=== PATIENT | female | born 1990 | race Caucasian/White ===

== ENCOUNTER 2018-10-06 17:35 | Emergency (ER) | payer MEDICAID, BC ==
--- NOTE | 2018-10-06 17:46 | EDM.PDOC ---
ED HPI GENERAL MEDICAL PROBLEM - General Chief Complaint: Gastrointestinal Problem Stated Complaint: PT HAS BLEEDING Time Seen by Provider: 10/06/18 17:43 Source of Information: Reports: Patient History Limitations: Reports: No Limitations - History of Present Illness INITIAL COMMENTS - FREE TEXT/NARRATIVE: HISTORY AND PHYSICAL: History of present illness: Patient is a 27-year-old female who presents to the emergency room with complaints of generalized abdominal pain and rectal bleeding. She states she has had several days of generalized abdominal discomfort. Today while using the bathroom she had noticed blood coming from the rectum. She states she has had no difficulty having bowel movements, declines straining. No previous history of hemorrhoids. States she has had to wear a panty liner as there is still some residual bleeding. She states she has had bouts of rectal bleeding in the past and was scheduled to have a colonoscopy but states this was canceled for some reason and never followed through with scheduling. Patient denies any fever, chills, headache, change in vision, syncope or near syncope. Denies any chest pain, back pain, shortness of breath or cough. Denies any nausea, vomiting, diarrhea, constipation or dysuria. Patient has been eating and drinking appropriately. Denies any chance of . Review of systems: As per history of present illness and below otherwise all systems reviewed and negative. Past medical history: As per history of present illness and as reviewed below otherwise noncontributory. Surgical history: As per history of present illness and as reviewed below otherwise noncontributory. Social history: See social history for further information Family history: As per history of present illness and as reviewed below otherwise noncontributory. Physical exam: General: Well-developed and well-nourished 27-year-old female. Alert and oriented. Nontoxic appearing and in no acute distress. HEENT: Atraumatic, normocephalic, pupils equal and reactive bilaterally, negative for conjunctival pallor or scleral icterus, mucous membranes moist, TMs normal bilaterally, throat clear, neck supple, nontender, trachea midline. No drooling or trismus noted. No meningeal signs. No hot potato voice noted. Lungs: Clear to auscultation, breath sounds equal bilaterally, chest nontender. Heart: S1S2, regular rate and rhythm without overt murmur Abdomen: Soft, nondistended, nontender. Negative for masses or hepatosplenomegaly. Negative for costovertebral tenderness. Pelvis: Stable nontender. Genitourinary: Deferred. Rectal: This was done with consent and a general accounting clerk at the bedside. External hemorrhoid noted at the 6 o'clock position. Good rectal tone. Hemoccult is positive. No althea blood noted in stool. Skin: Intact, warm, dry. No lesions or rashes noted. Extremities: Atraumatic, moves all extremities per self without difficulty or deficits, negative for cords or calf pain. Neurovascular unremarkable. Neuro: Awake, alert, oriented. Cranial nerves II through XII unremarkable. Cerebellum unremarkable. Motor and sensory unremarkable throughout. Exam nonfocal. Notes: Lab work is unremarkable. CT shows multiple low density lesions throughout the liver, follow-up is requested. She does have a right ovarian cyst. IUD in the endometrial canal. No other significant findings. I did discuss with patient the CT results and encouraged her to follow up with the general surgeon or her primary care for further evaluation of this incidental finding. Ambulatory her external hemorrhoid with hydrocortisone suppository. Encouraged her to follow up with the general surgeon for possible colonoscopy for the hemorrhoids. Supportive care measures were reviewed and discussed. Voices understanding and is agreeable to plan of care. Denies any further questions or concerns at this time. Diagnostics: CBC, CMP, TSH, CT abdomen/pelvis Therapeutics: None Prescription: Hydrocortisone suppository Impression: External hemorrhoid Abdominal pain, generalized Plan: 1. May want to add Colace into your supplement regiment (soften stools). Use the steroid suppository twice daily x 10 days. 2. Labs and imagining today were normal. 3. Follow up with your primary care provider and the General surgeon as we discussed. CT showed a few liver lesions which I would like to you follow up with your primary care provider on. 4. Return to the ED as needed and as discussed. Definitive disposition and diagnosis as appropriate pending reevaluation and review of above. bilteral lower abdomen Pain Score (Numeric/FACES): 5 - Related Data Allergies Allergy/AdvReac Type Severity Reaction Status Date / Time aspirin Allergy Nausea and Verified 10/06/18 17:42 Vomiting Home Meds: Home Meds FLUoxetine HCl [Fluoxetine HCl] 20 mg PO DAILY 03/07/18 [History] Lurasidone HCl [Latuda] 40 mg PO DAILY 07/11/19 [History] Past Medical History HEENT History: Reports: None Cardiovascular History: Reports: None Respiratory History: Reports: None Gastrointestinal History: Reports: None Genitourinary History: Reports: None METER MAKER History: Reports: , Other (See Below) Other METER MAKER History: Uterine biopsy Musculoskeletal History: Reports: None Neurological History: Reports: None Psychiatric History: Reports: None Endocrine/Metabolic History: Reports: Other (See Below) Other Endocrine/Metabolic History: Biopsy on lymph nodes Hematologic History: Reports: None Immunologic History: Reports: None Oncologic (Cancer) History: Reports: None Dermatologic History: Reports: None - Infectious Disease History Infectious Disease History: Reports: Chicken Pox - Past Surgical History Head Surgeries/Procedures: Reports: None HEENT Surgical History: Reports: None Cardiovascular Surgical History: Reports: None Respiratory Surgical History: Reports: None GI Surgical History: Reports: None Female Surgical History: Reports: None Endocrine Surgical History: Reports: None Neurological Surgical History: Reports: None Musculoskeletal Surgical History: Reports: None Oncologic Surgical History: Reports: None Dermatological Surgical History: Reports: None Social & Family History - Family History Family Medical History: Noncontributory - Caffeine Use Caffeine Use: Reports: Coffee, Energy Drinks ED ROS GENERAL - Review of Systems Review Of Systems: ROS reveals no pertinent complaints other than HPI. ED EXAM, GI/ABD - Physical Exam Exam: See Below (See dictation) Course - Vital Signs Last Recorded V/S: Last Vital Signs Temp 97.3 F 10/06/18 19:23 Pulse 88 10/06/18 19:23 Resp 18 10/06/18 19:23 BP 117/63 10/06/18 19:23 Pulse Ox 99 10/06/18 19:23 - Orders/Labs/Meds Labs: Laboratory Tests 10/06/18 10/06/18 10/06/18 Range/Units 18:05 18:05 19:25 WBC 10.50 (4.0-11.0) K/uL RBC 4.66 (4.30-5.90) M/uL Hgb 12.3 (12.0-16.0) g/dL Hct 39.2 (36.0-46.0) % MCV 84.1 (80.0-98.0) fL MCH 26.4 L (27.0-32.0) pg MCHC 31.4 (31.0-37.0) g/dL RDW Std Deviation 41.6 (28.0-62.0) fl RDW Coeff of Krista 14 (11.0-15.0) % Plt Count 354 (150-400) K/uL MPV 9.60 (7.40-12.00) fL Neut % (Auto) 68.1 (48.0-80.0) % Lymph % (Auto) 19.8 (16.0-40.0) % Nuckolls % (Auto) 9.9 (0.0-15.0) % Eos % (Auto) 1.8 (0.0-7.0) % Baso % (Auto) 0.4 (0.0-1.5) % Neut # (Auto) 7.2 H (1.4-5.7) K/uL Lymph # (Auto) 2.1 (0.6-2.4) K/uL Nuckolls # (Auto) 1.0 H (0.0-0.8) K/uL Eos # (Auto) 0.2 (0.0-0.7) K/uL Baso # (Auto) 0.0 (0.0-0.1) K/uL Nucleated RBC % 0.0 /100WBC Nucleated RBCs # 0 K/uL Sodium 137 (136-145) mmol/L Potassium 4.5 (3.5-5.1) mmol/L Chloride 104 (98-107) mmol/L Carbon Dioxide 23.5 (21.0-32.0) mmol/L BUN 17 (7.0-18.0) mg/dL Creatinine 0.9 (0.6-1.0) mg/dL Est Cr Clr Drug Dosing 81.80 mL/min Estimated GFR (MDRD) > 60.0 ml/min Glucose 89 (74-106) mg/dL Calcium 8.5 (8.5-10.1) mg/dL Total Bilirubin 0.2 (0.2-1.0) mg/dL AST 25 (15-37) IU/L ALT 25 (14-63) IU/L Alkaline Phosphatase 117 H (46-116) U/L Total Protein 7.9 (6.4-8.2) g/dL Albumin 3.3 L (3.4-5.0) g/dL Globulin 4.6 H (2.6-4.0) g/dL Albumin/Globulin Ratio 0.7 L (0.9-1.6) TSH 3rd Generation 2.75 (0.36-3.74) uIU/mL Urine Color YELLOW Urine Appearance SLT CLOUDY Urine pH 5.0 (5.0-8.0) Ur Specific [place] 1.010 (1.001-1.035) Urine Protein NEGATIVE (NEGATIVE) mg/dL Urine Glucose (UA) NEGATIVE (NEGATIVE) mg/dL Urine Ketones NEGATIVE (NEGATIVE) mg/dL Urine Occult Blood LARGE H (NEGATIVE) Urine Nitrite NEGATIVE (NEGATIVE) Urine Bilirubin NEGATIVE (NEGATIVE) Urine Urobilinogen 0.2 (<2.0) EU/dL Ur Leukocyte Esterase NEGATIVE (NEGATIVE) Urine RBC 3-5 (0-2/HPF) Urine WBC 2-4 (0-5/HPF) Ur Epithelial Cells FEW (NONE-FEW) Urine Bacteria RARE (NEGATIVE) Meds: Medications Discontinued Medications Generic Name Dose Route Start Last Admin Trade Name Freq PRN Reason Stop Dose Admin Iopamidol 100 ml 10/06/18 18:35 10/06/18 18:36 Isovue Multipack-370 (76%) IVPUSH 10/06/18 18:36 100 ml ONETIME ONE Administration Departure - Departure Time of Disposition: 19:42 Disposition: Home, Self-Care 01 Clinical Impression: Abdominal pain Qualifiers: Abdominal location: generalized Qualified Code(s): R10.84 - Generalized abdominal pain Hemorrhoid Qualifiers: Hemorrhoid type: first degree Qualified Code(s): K64.0 - First degree hemorrhoids - Discharge Information Referrals: PCP,None [Primary Care Provider] - Forms: ED Department Discharge Additional Instructions: The following information is given to patients seen in the emergency department who are being discharged to home. This information is to outline your options for follow-up care. We provide all patients seen in our emergency department with a follow-up referral. The need for follow-up, as well as the timing and circumstances, are variable depending upon the specifics of your emergency department visit. If you don't have a primary care physician on staff, we will provide you with a referral. We always advise you to contact your personal physician following an emergency department visit to inform them of the circumstance of the visit and for follow-up with them and/or the need for any referrals to a consulting specialist. The emergency department will also refer you to a specialist when appropriate. This referral assures that you have the opportunity for follow-up care with a specialist. All of these measure are taken in an effort to provide you with optimal care, which includes your follow-up. Under all circumstances we always encourage you to contact your private physician who remains a resource for coordinating your care. When calling for follow-up care, please make the office aware that this follow-up is from your recent emergency room visit. If for any reason you are refused follow-up, please contact the [facility] Emergency Department at and asked to speak to the emergency department charge nurse. [facility] [address] [place] [id number] [address] [facility] Specialty Care - General Surgery Professional Building [address] [place] [address], [address] [place] [address] 1. May want to add Colace into your supplement regiment (soften stools). Use the steroid suppository twice daily x 10 days. 2. Labs and imagining today were normal. 3. Follow up with your primary care provider and the General surgeon as we discussed. CT showed a few liver lesions which I would like to you follow up with your primary care provider on. 4. Return to the ED as needed and as discussed.
[2018-10-06] MEDS ORDERED: Iopamidol 755 MG/ML 500 ML Multipack Bottle IVPUSH ONE (18:35)
[2018-10-06 18:52] LABS: CHLORIDE,CL 104 mmol/L (98-107); SODIUM,NA 137 mmol/L (136-145)
--- NOTE | 2018-10-06 19:32 | CT ---
INDICATION: Bloody stool. TECHNIQUE: Multiple axial images were obtained from the diaphragm to the symphysis pubis after administration of 100 mL of Isovue-370 intravenously. Sagittal and coronal re-formatted images were obtained. COMPARISON: None. FINDINGS: The visualized portion of the lung bases are clear. There are multiple low-dense lesions throughout the liver largest in the dome of the liver measuring 1.9 cm on image #21 of series 201. The spleen, pancreas were gallbladder and adrenal glands are unremarkable. There is no mass or hydronephrosis seen in the kidneys. There is no evidence of a bowel obstruction. There is an IUD in the uterus. There is a 5.0 x 3.7 cm right ovarian cyst. The abdominal aorta is normal in caliber. There is a retroaortic left renal vein. There are enlarged lymph nodes in the ruthann hepatis region. On image #46 of series 201 there is a 3.5 x 2.4 cm enlarged lymph node in the ruthann hepatis region. There are prominent lymph nodes in the gastrohepatic and retroperitoneal space. There is no free fluid identified in the abdomen or pelvis. IMPRESSION: 1. Multiple low dense lesions scattered throughout both the right and left lobe liver largest in the dome of liver measuring 1.9 cm. These would be consistent with metastases. 2. Enlarged lymph nodes in the gastrohepatic region as well as prominent lymph nodes in the gastrohepatic and retroperitoneal spaces. 3. 5.0 x 3.7 cm right ovarian cyst. 4. IUD in the endometrial canal. Dictated by Regino Abdullahi MD @ 10/06/2018 7:30:34 PM Please note that all CT scans at this facility use dose modulation, iterative reconstruction, and/or weight-based dosing when appropriate to reduce radiation dose to as low as reasonably achievable. Dictated by: Regino Abdullahi MD @ 10/06/2018 19:31:27 (Electronically Signed)
== END 2018-10-06 19:59 | disposition home or self-care (01) ==
LOC: MW.ED 17:35
DX: K64.0 First degree hemorrhoids (principal); R10.84 Generalized abdominal pain; Z88.6 Allergy status to analgesic agent; Z79.899 Other long term (current) drug therapy
CPT/HCPCS: 74177; 80053; 81001; 84443; 85025; 99284; Q9967

== ENCOUNTER 2018-11-21 14:35 | Emergency (ER) | payer BC, MEDICAID ==
--- NOTE | 2018-11-21 14:54 | EDM.PDOC ---
ED HPI GENERAL MEDICAL PROBLEM - General Chief Complaint: Chest Pain Stated Complaint: CHEST PAIN Time Seen by Provider: 11/21/18 14:54 Source of Information: Reports: Patient History Limitations: Reports: No Limitations - History of Present Illness INITIAL COMMENTS - FREE TEXT/NARRATIVE: HISTORY AND PHYSICAL: History of present illness: Patient is a 28-year-old female presents to the ED with complaint of right- sided chest pain 1 week. She states the pain is constant and has gotten worse today which prompted her to come to the ED. She has some associated shortness of breath and palpitations but denies nausea, vomiting, diaphoresis, abdominal pain, cough, fevers, chills. History of bipolar disorder and depression but otherwise denies significant past medical history. She is a former smoker, denies illicit drug use. Patient states that 2 years ago she had a similar chest pain and was found to have a nodule in the mediastinum that was biopsied and found to be a lymph node. Review of systems: As per history of present illness and below otherwise all systems reviewed and negative. Past medical history: As per history of present illness and as reviewed below otherwise noncontributory. Surgical history: As per history of present illness and as reviewed below otherwise noncontributory. Social history: No reported history of drug or alcohol abuse. Family history: As per history of present illness and as reviewed below otherwise noncontributory. Physical exam: General: Patient sitting comfortably in no acute distress and nontoxic appearing HEENT: Atraumatic, normocephalic, pupils reactive, negative for conjunctival pallor or scleral icterus, mucous membranes moist, throat clear, neck supple, nontender, trachea midline. No meningeal signs. Lungs: Clear to auscultation, breath sounds equal bilaterally, pain to palpation of the right anterior chest wall Heart: S1S2, regular, negative for clicks, rubs, or overt murmur. Abdomen: Soft, nondistended, nontender. Negative for masses or hepatosplenomegaly. Negative for costovertebral tenderness. No rigidity, rebound , guarding. Pelvis: Stable nontender. Genitourinary: Deferred. Rectal: Deferred. Extremities: Atraumatic, negative for cords or calf pain. Neurovascular unremarkable. Neuro: Awake, alert, oriented. Cranial nerves II through XII unremarkable. Cerebellum unremarkable. Motor and sensory unremarkable throughout. Exam nonfocal. Notes: Diagnostics: Chest x-ray, EKG Therapeutics: none Prescriptions: Diclofenac Impression: Costochondritis Plan: Take Diclofenac as discussed Follow-up with primary care provider Return to ED as needed as discussed Definitive disposition and diagnosis as appropriate pending reevaluation and review of above. chest Pain Score (Numeric/FACES): 7 - Related Data Allergies Allergy/AdvReac Type Severity Reaction Status Date / Time aspirin Allergy Nausea and Verified 11/21/18 14:46 Vomiting naproxen Allergy Nausea and Verified 11/21/18 14:46 Vomiting Home Meds: Home Meds Lurasidone HCl [Latuda] 40 mg PO DAILY 10/06/18 [History] Diclofenac Sodium [Voltaren] 75 mg PO BIDMEALS #30 tab.cr 11/21/18 [Rx] Sertraline HCl [Zoloft] 1 tab PO DAILY 11/21/18 [History] Past Medical History HEENT History: Reports: None Cardiovascular History: Reports: None Respiratory History: Reports: Asthma Gastrointestinal History: Reports: None Genitourinary History: Reports: None 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 SALES REPRESENTATIVE History: Reports: , Other (See Below) Other HEALTHCARE SALES REPRESENTATIVE History: Uterine biopsy Musculoskeletal History: Reports: None Neurological History: Reports: None Psychiatric History: Reports: None Endocrine/Metabolic History: Reports: Other (See Below) Other Endocrine/Metabolic History: Biopsy on lymph nodes Hematologic History: Reports: None Immunologic History: Reports: None Oncologic (Cancer) History: Reports: None Dermatologic History: Reports: None - Infectious Disease History Infectious Disease History: Reports: C-Difficile - Past Surgical History Head Surgeries/Procedures: Reports: None HEENT Surgical History: Reports: None Cardiovascular Surgical History: Reports: None Respiratory Surgical History: Reports: None GI Surgical History: Reports: None Female Surgical History: Reports: None Endocrine Surgical History: Reports: None Neurological Surgical History: Reports: None Musculoskeletal Surgical History: Reports: None Oncologic Surgical History: Reports: None Dermatological Surgical History: Reports: None Social & Family History - Family History Family Medical History: Noncontributory - Tobacco Use Smoking Status *Q: Former Smoker Used Tobacco, but Quit: Yes Month/Year Tobacco Last Used: 2 years - Caffeine Use Caffeine Use: Reports: Coffee - Recreational Drug Use Recreational Drug Use: No ED ROS GENERAL - Review of Systems Review Of Systems: ROS reveals no pertinent complaints other than HPI. ED EXAM, GENERAL - Physical Exam Exam: See Below (See dictation) Course - Vital Signs Last Recorded V/S: Last Vital Signs Temp 97.0 F 11/21/18 15:57 Pulse 69 11/21/18 15:57 Resp 16 11/21/18 15:57 BP 123/75 11/21/18 15:57 Pulse Ox 99 11/21/18 15:57 Departure - Departure Time of Disposition: 16:31 Disposition: Home, Self-Care 01 Condition: Good Clinical Impression: Costochondritis Prescriptions: Diclofenac Sodium [Voltaren] 75 mg PO BIDMEALS #30 tab.cr Referrals: PCP,Unknown [Primary Care Provider] - Forms: ED Department Discharge Additional Instructions: The following information is given to patients seen in the emergency department who are being discharged to home. This information is to outline your options for follow-up care. We provide all patients seen in our emergency department with a follow-up referral. The need for follow-up, as well as the timing and circumstances, are variable depending upon the specifics of your emergency department visit. If you don't have a primary care physician on staff, we will provide you with a referral. We always advise you to contact your personal physician following an emergency department visit to inform them of the circumstance of the visit and for follow-up with them and/or the need for any referrals to a consulting specialist. The emergency department will also refer you to a specialist when appropriate. This referral assures that you have the opportunity for follow-up care with a specialist. All of these measure are taken in an effort to provide you with optimal care, which includes your follow-up. Under all circumstances we always encourage you to contact your private physician who remains a resource for coordinating your care. When calling for follow-up care, please make the office aware that this follow-up is from your recent emergency room visit. If for any reason you are refused follow-up, please contact the [facility] Emergency Department at and asked to speak to the emergency department charge nurse. [facility] [address] [place] [address] [id number] [address] Take Diclofenac as discussed Follow-up with primary care provider Return to ED as needed as discussed
--- NOTE | 2018-11-21 16:20 | CR ---
INDICATION: Chest pain and dyspnea for 1 week. History of asthma TECHNIQUE: Chest radiograph 2 views COMPARISON: None FINDINGS: Mediastinum: There is a convex density in the left paratracheal region overlying the aortic arch measuring 5.3 cm. The heart silhouette is normal in size and morphology. Lung: Both lungs are unremarkable in appearance. No sign of pleural effusion seen. No pneumothorax is identified. IMPRESSION: 1. There is a convex density in the left paratracheal region overlying the aortic arch measuring 5.3 cm. Evaluation with chest CT is recommended to exclude mediastinal mass. A copy of this report was faxed to Dr. Nichols at approximately 4:19 PM. Dictated by Torin Aponte MD @ 11/21/2018 4:19:06 PM Dictated by: Torin Aponte MD @ 11/21/2018 16:19:20 (Electronically Signed)
== END 2018-11-21 16:50 | disposition home or self-care (01) ==
LOC: MW.ED 14:35
DX: M94.0 Chondrocostal junction syndrome [Tietze] (principal); Z87.891 Personal history of nicotine dependence; Z88.8 Allergy status to other drugs, medicaments and biological substances; Z79.899 Other long term (current) drug therapy
CPT/HCPCS: 71046; 71046-26; 93005; 99283; 99284-25

== ENCOUNTER 2019-02-06 10:28 | Emergency (ER) | payer BC, MEDICAID ==
--- NOTE | 2019-02-06 10:32 | EDM.PDOC ---
ED HPI GENERAL MEDICAL PROBLEM - General Chief Complaint: Flank Pain Stated Complaint: LOW BACK PAIN Time Seen by Provider: 02/06/19 10:29 Source of Information: Reports: Patient History Limitations: Reports: No Limitations - History of Present Illness INITIAL COMMENTS - FREE TEXT/NARRATIVE: HISTORY AND PHYSICAL: History of present illness: Patient is a 28-year-old female presents to the ED with complaint of right flank pain. She states it started yesterday morning and is progressively getting worse. She states pain is in her right mid back and wraps around to the front of her abdomen. Pain is constant. She states she was treated for a UTI 2 weeks ago and finished her antibiotics. She denies dysuria, hematuria, vomiting , fevers, chills, chest pain, SOB. She states she has been nauseous. She is not taking anything for her symptoms. Review of systems: As per history of present illness and below otherwise all systems reviewed and negative. Past medical history: As per history of present illness and as reviewed below otherwise noncontributory. Surgical history: As per history of present illness and as reviewed below otherwise noncontributory. Social history: No reported history of drug or alcohol abuse. Family history: As per history of present illness and as reviewed below otherwise noncontributory. Physical exam: General: Patient sitting comfortably in no acute distress and nontoxic appearing HEENT: Atraumatic, normocephalic, pupils reactive, negative for conjunctival pallor or scleral icterus, mucous membranes moist, throat clear, neck supple, nontender, trachea midline. No meningeal signs. Lungs: Clear to auscultation, breath sounds equal bilaterally, chest nontender. Heart: S1S2, regular, negative for clicks, rubs, or overt murmur. Abdomen: Soft, nondistended, nontender. Negative for masses or hepatosplenomegaly. Right costovertebral tenderness. No rigidity, rebound, guarding. Pelvis: Stable nontender. Genitourinary: Deferred. Rectal: Deferred. Extremities: Atraumatic, negative for cords or calf pain. Neurovascular unremarkable. Neuro: Awake, alert, oriented. Cranial nerves II through XII unremarkable. Cerebellum unremarkable. Motor and sensory unremarkable throughout. Exam nonfocal. Notes: Diagnostics: UA, urine hcg Therapeutics: [] Prescriptions: Cipro Impression: UTI Plan: Drink plenty of fluids and take antibiotic as directed. Follow up with primary care provider Return to ED as needed as discussed Definitive disposition and diagnosis as appropriate pending reevaluation and review of above. Right Flank Pain Score (Numeric/FACES): 7 - Related Data Allergies Allergy/AdvReac Type Severity Reaction Status Date / Time aspirin Allergy Nausea and Verified 02/06/19 10:39 Vomiting naproxen Allergy Nausea and Verified 02/06/19 10:39 Vomiting Home Meds: Home Meds Lurasidone HCl [Latuda] 40 mg PO DAILY 10/06/18 [History] Diclofenac Sodium [Voltaren] 75 mg PO BIDMEALS #30 tab.cr 11/21/18 [Rx] Sertraline HCl [Zoloft] 1 tab PO DAILY 11/21/18 [History] Past Medical History HEENT History: Reports: None Cardiovascular History: Reports: None Respiratory History: Reports: Asthma Gastrointestinal History: Reports: None Genitourinary History: Reports: None SKIN FITTER History: Reports: , Other (See Below) Other SKIN FITTER History: Uterine biopsy Musculoskeletal History: Reports: None Neurological History: Reports: None Psychiatric History: Reports: None Endocrine/Metabolic History: Reports: Other (See Below) Other Endocrine/Metabolic History: Biopsy on lymph nodes Hematologic History: Reports: None Immunologic History: Reports: None Oncologic (Cancer) History: Reports: None Dermatologic History: Reports: None - Infectious Disease History Infectious Disease History: Reports: C-Difficile - Past Surgical History Head Surgeries/Procedures: Reports: None HEENT Surgical History: Reports: None Cardiovascular Surgical History: Reports: None Respiratory Surgical History: Reports: None GI Surgical History: Reports: None Female Surgical History: Reports: None Endocrine Surgical History: Reports: None Neurological Surgical History: Reports: None Musculoskeletal Surgical History: Reports: None Oncologic Surgical History: Reports: None Dermatological Surgical History: Reports: None Social & Family History - Family History Family Medical History: Noncontributory - Caffeine Use Caffeine Use: Reports: Coffee ED ROS GENERAL - Review of Systems Review Of Systems: ROS reveals no pertinent complaints other than HPI. ED EXAM,LOWER BACK PAIN/INJURY - Physical Exam Exam: See Below (see dictation) Course - Vital Signs Last Recorded V/S: Last Vital Signs Temp 96.5 F 02/06/19 10:39 Pulse 84 02/06/19 10:39 Resp 16 02/06/19 10:39 BP 125/65 11/11/19 10:39 Pulse Ox 97 02/06/19 10:39 - Orders/Labs/Meds Orders: Active Orders 24 hr Category Date Time Status CULTURE URINE [RM] Stat Lab 02/06/19 10:33 Received Labs: Laboratory Tests 02/06/19 02/06/19 Range/Units 10:33 10:33 Urine Color YELLOW Urine Appearance CLEAR Urine pH 6.5 (5.0-8.0) Ur Specific [place] 1.010 (1.001-1.035) Urine Protein NEGATIVE (NEGATIVE) mg/dL Urine Glucose (UA) NEGATIVE (NEGATIVE) mg/dL Urine Ketones NEGATIVE (NEGATIVE) mg/dL Urine Occult Blood SMALL H (NEGATIVE) Urine Nitrite NEGATIVE (NEGATIVE) Urine Bilirubin NEGATIVE (NEGATIVE) Urine Urobilinogen 0.2 (<2.0) EU/dL Ur Leukocyte Esterase SMALL H (NEGATIVE) Urine RBC 2-5 (0-2/HPF) Urine WBC 5-10 (0-5/HPF) Ur Epithelial Cells MANY (NONE-FEW) Urine Bacteria 2+ H (NEGATIVE) Urine HCG, Qual NEGATIVE (NEGATIVE) Departure - Departure Time of Disposition: 11:13 Disposition: Home, Self-Care 01 Condition: Good Clinical Impression: UTI (urinary tract infection) - Discharge Information Referrals: PCP,Unknown [Primary Care Provider] - Forms: ED Department Discharge Additional Instructions: The following information is given to patients seen in the emergency department who are being discharged to home. This information is to outline your options for follow-up care. We provide all patients seen in our emergency department with a follow-up referral. The need for follow-up, as well as the timing and circumstances, are variable depending upon the specifics of your emergency department visit. If you don't have a primary care physician on staff, we will provide you with a referral. We always advise you to contact your personal physician following an emergency department visit to inform them of the circumstance of the visit and for follow-up with them and/or the need for any referrals to a consulting specialist. The emergency department will also refer you to a specialist when appropriate. This referral assures that you have the opportunity for follow-up care with a specialist. All of these measure are taken in an effort to provide you with optimal care, which includes your follow-up. Under all circumstances we always encourage you to contact your private physician who remains a resource for coordinating your care. When calling for follow-up care, please make the office aware that this follow-up is from your recent emergency room visit. If for any reason you are refused follow-up, please contact the [facility] Emergency Department at and asked to speak to the emergency department charge nurse. [facility] [address] [place] [address] [facility] [address] [place] [id number] Drink plenty of fluids and take antibiotic as directed. Follow up with primary care provider Return to ED as needed as discussed - My Orders Last 24 Hours: My Active Orders 02/06/19 10:33 CULTURE URINE [RM] Stat - Assessment/Plan Last 24 Hours: My Active Orders 02/06/19 10:33 CULTURE URINE [RM] Stat
== END 2019-02-06 11:33 | disposition home or self-care (01) ==
LOC: MW.ED 10:28
DX: N39.0 Urinary tract infection, site not specified (principal); Z88.8 Allergy status to other drugs, medicaments and biological substances; Z79.899 Other long term (current) drug therapy
CPT/HCPCS: 81001; 81025; 87086; 99284

== ENCOUNTER 2019-02-27 10:25 | Emergency (ER) | payer BC, MEDICAID ==
[2019-02-27] MEDS ORDERED: Sodium Chloride 0.9% 1,000 ML IV ONE ×2 (10:42→12:45)
[2019-02-27] MEDS ORDERED: Ondansetron 4 MG/2 ML SDV IVPUSH ONE (10:42)
[2019-02-27] MEDS ORDERED: Ketorolac 30 MG/ML SDV IVPUSH ONE (10:42)
[2019-02-27] MEDS ORDERED: Dicyclomine 10 MG Cap PO ONE (10:43)
--- NOTE | 2019-02-27 10:47 | EDM.PDOC ---
ED HPI GENERAL MEDICAL PROBLEM - General Chief Complaint: Abdominal Pain Stated Complaint: VOMITINg Time Seen by Provider: 02/27/19 10:26 Source of Information: Reports: Patient History Limitations: Reports: No Limitations - History of Present Illness INITIAL COMMENTS - FREE TEXT/NARRATIVE: HISTORY AND PHYSICAL: History of present illness: Patient is a 28-year-old female presents to the ED today with concern of vomiting and diarrhea since yesterday. Patient states every 15-20 minutes she is having watery diarrhea and vomits within the same timeframe. Patient states prior to the diarrhea she does have some generalized abdominal cramping which is relieved with the bowel movement. Patient states she's been having a hard time keeping fluids down due to vomiting. Patient denies any other symptoms or concerns. Patient denies fever, chills, chest pain, shortness of breath, or cough. Denies headache, neck stiff ness, change in vision, syncope, or near syncope. Denies dysuria. Has not noted any blood in urine or stool. Review of systems: As per history of present illness and below otherwise all systems reviewed and negative. Past medical history: As per history of present illness and as reviewed below otherwise noncontributory. Surgical history: As per history of present illness and as reviewed below otherwise noncontributory. Social history: See social history for further information Family history: As per history of present illness and as reviewed below otherwise noncontributory. Physical exam: General: Patient is alert, oriented, and in no acute distress. Patient sitting comfortably on exam table. HEENT: Atraumatic, normocephalic, pupils equal and reactive bilaterally, negative for conjunctival pallor or scleral icterus, mucous membranes moist, TMs normal bilaterally, throat clear, neck supple, nontender, trachea midline. No drooling or trismus noted. No meningeal signs. No hot potato voice noted. Lungs: Clear to auscultation, breath sounds equal bilaterally, chest nontender. Heart: S1S2, regular rate and rhythm without overt murmur Abdomen: Soft, nondistended, nontender. Negative for masses or hepatosplenomegaly. Negative for costovertebral tenderness. Pelvis: Stable nontender. Genitourinary: Deferred. Rectal: Deferred. Skin: Intact, warm, dry. No lesions or rashes noted. Extremities: Atraumatic, negative for cords or calf pain. Neurovascular unremarkable. Neuro: Awake, alert, oriented. Cranial nerves II through XII unremarkable. Cerebellum unremarkable. Motor and sensory unremarkable throughout. Exam nonfocal. Notes: Patient is on her menstrual cycle at this time. Patient is able to tolerate by mouth intake in the ED today. Patient was unable to leave a stool sample here in the ED today. Stool collection supplies have been provided to her to collect outpatient and return for lab. Voices understanding and is agreeable to plan of care. Denies any further questions or concerns at this time. Diagnostics: CBC, CMP, UA, lipase, stool culture, ova and parasite, C. difficile, [facility] [place] [facility]: NS, Bentyl, Zofran, Toradol Prescription: Zofran, Bentyl Impression: H/O vomiting H/O diarrhea Plan: 1. Take medication as prescribed. You can alternate ibuprofen and Tylenol as directed for pain and discomfort. 2. Follow-up with her primary care provider as discussed. Return to the ED as needed and as discussed. Definitive disposition and diagnosis as appropriate pending reevaluation and review of above. abd Pain Score (Numeric/FACES): 7 - Related Data Allergies Allergy/AdvReac Type Severity Reaction Status Date / Time aspirin Allergy Nausea and Verified 02/06/19 10:39 Vomiting naproxen Allergy Nausea and Verified 02/06/19 10:39 Vomiting Home Meds: Home Meds FLUoxetine HCl [Fluoxetine] 30 mg PO 02/27/19 [History] Lurasidone HCl [Latuda] 40 mg PO 02/27/19 [History] Past Medical History HEENT History: Reports: None Cardiovascular History: Reports: None Respiratory History: Reports: Asthma Gastrointestinal History: Reports: None Genitourinary History: Reports: None PEDIATRICIAN/MEDICAL DOCTOR History: Reports: , Other (See Below) Other PEDIATRICIAN/MEDICAL DOCTOR History: Uterine biopsy Musculoskeletal History: Reports: None Neurological History: Reports: None Psychiatric History: Reports: None Endocrine/Metabolic History: Reports: Other (See Below) Other Endocrine/Metabolic History: Biopsy on lymph nodes Hematologic History: Reports: None Immunologic History: Reports: None Oncologic (Cancer) History: Reports: None Dermatologic History: Reports: None - Infectious Disease History Infectious Disease History: Reports: C-Difficile - Past Surgical History Head Surgeries/Procedures: Reports: None HEENT Surgical History: Reports: None Cardiovascular Surgical History: Reports: None Respiratory Surgical History: Reports: None GI Surgical History: Reports: None Female Surgical History: Reports: None Endocrine Surgical History: Reports: None Neurological Surgical History: Reports: None Musculoskeletal Surgical History: Reports: None Oncologic Surgical History: Reports: None Dermatological Surgical History: Reports: None Social & Family History - Family History Family Medical History: Noncontributory - Tobacco Use Smoking Status *Q: Current Every Day Smoker Years of Tobacco use: 1 Packs/Tins Daily: 1 - Caffeine Use Caffeine Use: Reports: Coffee - Recreational Drug Use Recreational Drug Use: No ED ROS GENERAL - Review of Systems Review Of Systems: Comprehensive ROS is negative, except as noted in HPI. ED EXAM, GENERAL - Physical Exam Exam: See Below (see dictation) Course - Vital Signs Last Recorded V/S: Last Vital Signs Temp 97.6 F 02/27/19 12:20 Pulse 106 H 02/27/19 12:20 Resp 13 02/27/19 12:20 BP 127/71 02/27/19 12:20 Pulse Ox 98 02/27/19 12:20 - Orders/Labs/Meds Orders: Active Orders 24 hr Category Date Time Status Communication Order [RC] STAT Care 02/27/19 11:46 Active C DIFFICILE AG/TOXIN W/REFLEX [RM] Stat Lab 02/27/19 10:43 Ordered CULTURE STOOL + CAMPY+SHIGATOX [RM] Stat Lab 02/27/19 10:43 Ordered OVA & PARASITES BY IMMUNOASSAY [MREF] Stat Lab 02/27/19 10:43 Ordered Sodium Chloride 0.9% [Normal Saline] 1,000 ml Med 02/27/19 12:45 Active IV STAT Medication Orders Sodium Chloride (Normal Saline) 1,000 mls @ 999 mls/hr IV STAT ONE Stop: 02/27/19 13:45 Last Admin: 02/27/19 12:49 Dose: 999 mls/hr Labs: Laboratory Tests 02/27/19 02/27/19 02/27/19 Range/Units 10:50 10:50 10:50 WBC 9.53 (4.0-11.0) K/uL RBC 5.38 (4.30-5.90) M/uL Hgb 14.2 (12.0-16.0) g/dL Hct 44.4 (36.0-46.0) % MCV 82.5 (80.0-98.0) fL MCH 26.4 L (27.0-32.0) pg MCHC 32.0 (31.0-37.0) g/dL RDW Std Deviation 45.6 (28.0-62.0) fl RDW Coeff of Krsita 15 (11.0-15.0) % Plt Count 348 (150-400) K/uL MPV 9.60 (7.40-12.00) fL Neut % (Auto) 84.9 H (48.0-80.0) % Lymph % (Auto) 7.6 L (16.0-40.0) % [place] % (Auto) 7.0 (0.0-15.0) % Eos % (Auto) 0.2 (0.0-7.0) % Baso % (Auto) 0.3 (0.0-1.5) % Neut # (Auto) 8.1 H (1.4-5.7) K/uL Lymph # (Auto) 0.7 (0.6-2.4) K/uL [place] # (Auto) 0.7 (0.0-0.8) K/uL Eos # (Auto) 0.0 (0.0-0.7) K/uL Baso # (Auto) 0.0 (0.0-0.1) K/uL Nucleated RBC % 0.0 /100WBC Nucleated RBCs # 0 K/uL Sodium 137 (136-145) mmol/L Potassium 3.9 (3.5-5.1) mmol/L Chloride 101 (98-107) mmol/L Carbon Dioxide 21.3 (21.0-32.0) mmol/L BUN 20 H (7.0-18.0) mg/dL Creatinine 0.9 (0.6-1.0) mg/dL Est Cr Clr Drug Dosing 81.08 mL/min Estimated GFR (MDRD) > 60.0 ml/min Glucose 118 H (74-106) mg/dL Calcium 8.4 L (8.5-10.1) mg/dL Total Bilirubin 0.4 (0.2-1.0) mg/dL AST 18 (15-37) IU/L ALT 18 (14-63) IU/L Alkaline Phosphatase 131 H (46-116) U/L Total Protein 8.5 H (6.4-8.2) g/dL Albumin 3.6 (3.4-5.0) g/dL Globulin 4.9 H (2.6-4.0) g/dL Albumin/Globulin Ratio 0.7 L (0.9-1.6) Lipase 48 L (73-393) U/L HCG, Qual NEGATIVE (NEG) Urine Color Urine Appearance Urine pH (5.0-8.0) Ur Specific [place] (1.001-1.035) Urine Protein (NEGATIVE) mg/dL Urine Glucose (UA) (NEGATIVE) mg/dL Urine Ketones (NEGATIVE) mg/dL Urine Occult Blood (NEGATIVE) Urine Nitrite (NEGATIVE) Urine Bilirubin (NEGATIVE) Urine Urobilinogen (<2.0) EU/dL Ur Leukocyte Esterase (NEGATIVE) Urine RBC (0-2/HPF) Urine WBC (0-5/HPF) Ur Epithelial Cells (NONE-FEW) Urine Bacteria (NEGATIVE) Urine Mucus (NONE-MOD) 02/27/19 Range/Units 13:25 WBC (4.0-11.0) K/uL RBC (4.30-5.90) M/uL Hgb (12.0-16.0) g/dL Hct (36.0-46.0) % MCV (80.0-98.0) fL MCH (27.0-32.0) pg MCHC (31.0-37.0) g/dL RDW Std Deviation (28.0-62.0) fl RDW Coeff of Krista (11.0-15.0) % Plt Count (150-400) K/uL MPV (7.40-12.00) fL Neut % (Auto) (48.0-80.0) % Lymph % (Auto) (16.0-40.0) % [place] % (Auto) (0.0-15.0) % Eos % (Auto) (0.0-7.0) % Baso % (Auto) (0.0-1.5) % Neut # (Auto) (1.4-5.7) K/uL Lymph # (Auto) (0.6-2.4) K/uL [place] # (Auto) (0.0-0.8) K/uL Eos # (Auto) (0.0-0.7) K/uL Baso # (Auto) (0.0-0.1) K/uL Nucleated RBC % /100WBC Nucleated RBCs # K/uL Sodium (136-145) mmol/L Potassium (3.5-5.1) mmol/L Chloride (98-107) mmol/L Carbon Dioxide (21.0-32.0) mmol/L BUN (7.0-18.0) mg/dL Creatinine (0.6-1.0) mg/dL Est Cr Clr Drug Dosing mL/min Estimated GFR (MDRD) ml/min Glucose (74-106) mg/dL Calcium (8.5-10.1) mg/dL Total Bilirubin (0.2-1.0) mg/dL AST (15-37) IU/L ALT (14-63) IU/L Alkaline Phosphatase (46-116) U/L Total Protein (6.4-8.2) g/dL Albumin (3.4-5.0) g/dL Globulin (2.6-4.0) g/dL Albumin/Globulin Ratio (0.9-1.6) Lipase (73-393) U/L HCG, Qual (NEG) Urine Color YELLOW Urine Appearance HAZY Urine pH 6.0 (5.0-8.0) Ur Specific [place] 1.025 (1.001-1.035) Urine Protein TRACE H (NEGATIVE) mg/dL Urine Glucose (UA) NEGATIVE (NEGATIVE) mg/dL Urine Ketones NEGATIVE (NEGATIVE) mg/dL Urine Occult Blood LARGE H (NEGATIVE) Urine Nitrite NEGATIVE (NEGATIVE) Urine Bilirubin NEGATIVE (NEGATIVE) Urine Urobilinogen 0.2 (<2.0) EU/dL Ur Leukocyte Esterase NEGATIVE (NEGATIVE) Urine RBC 10-12 (0-2/HPF) Urine WBC 1-3 (0-5/HPF) Ur Epithelial Cells MANY (NONE-FEW) Urine Bacteria 1+ H (NEGATIVE) Urine Mucus HEAVY (NONE-MOD) Meds: Medications Generic Name Dose Route Start Last Admin Trade Name Freq PRN Reason Stop Dose Admin Sodium Chloride 1,000 mls @ 999 mls/hr 02/27/19 12:45 02/27/19 12:49 Normal Saline IV 02/27/19 13:45 999 mls/hr STAT ONE Administration Discontinued Medications Generic Name Dose Route Start Last Admin Trade Name Freq PRN Reason Stop Dose Admin Dicyclomine HCl 10 mg 02/27/19 10:43 02/27/19 11:01 Bentyl PO 02/27/19 10:44 10 mg ONETIME ONE Administration Sodium Chloride 1,000 mls @ 999 mls/hr 02/27/19 10:42 02/27/19 11:01 Normal Saline IV 02/27/19 11:42 999 mls/hr BOLUS ONE Administration Ketorolac Tromethamine 30 mg 02/27/19 10:42 02/27/19 11:01 Toradol IVPUSH 02/27/19 10:43 30 mg ONETIME ONE Administration Ondansetron HCl 4 mg 02/27/19 10:42 02/27/19 11:01 Zofran IVPUSH 02/27/19 10:43 4 mg ONETIME ONE Administration Departure - Departure Time of Disposition: 13:44 Disposition: Home, Self-Care 01 Clinical Impression: History of vomiting, History of diarrhea - Discharge Information Instructions: Diarrhea, Adult, Nausea and Vomiting, Adult Referrals: PCP,Unknown [Primary Care Provider] - Forms: ED Department Discharge Additional Instructions: The following information is given to patients seen in the emergency department who are being discharged to home. This information is to outline your options for follow-up care. We provide all patients seen in our emergency department with a follow-up referral. The need for follow-up, as well as the timing and circumstances, are variable depending upon the specifics of your emergency department visit. If you don't have a primary care physician on staff, we will provide you with a referral. We always advise you to contact your personal physician following an emergency department visit to inform them of the circumstance of the visit and for follow-up with them and/or the need for any referrals to a consulting specialist. The emergency department will also refer you to a specialist when appropriate. This referral assures that you have the opportunity for follow-up care with a specialist. All of these measure are taken in an effort to provide you with optimal care, which includes your follow-up. Under all circumstances we always encourage you to contact your private physician who remains a resource for coordinating your care. When calling for follow-up care, please make the office aware that this follow-up is from your recent emergency room visit. If for any reason you are refused follow-up, please contact the [facility] Emergency Department at and asked to speak to the emergency department charge nurseLanden Garcia [facility] [address] [place] [address] [facility] [address] [place] [address] 1. Take medication as prescribed. You can alternate ibuprofen and Tylenol as directed for pain and discomfort. 2. Follow-up with her primary care provider as discussed. Return to the ED as needed and as discussed. - My Orders Last 24 Hours: My Active Orders 02/27/19 10:43 C DIFFICILE AG/TOXIN W/REFLEX [RM] Stat CULTURE STOOL + CAMPY+SHIGATOX [RM] Stat OVA & PARASITES BY IMMUNOASSAY [MREF] Stat 02/27/19 11:46 Communication Order [RC] STAT 02/27/19 12:45 Sodium Chloride 0.9% [Normal Saline] 1,000 ml IV STAT - Assessment/Plan Last 24 Hours: My Active Orders 02/27/19 10:43 C DIFFICILE AG/TOXIN W/REFLEX [RM] Stat CULTURE STOOL + CAMPY+SHIGATOX [RM] Stat OVA & PARASITES BY IMMUNOASSAY [MREF] Stat 02/27/19 11:46 Communication Order [RC] STAT 02/27/19 12:45 Sodium Chloride 0.9% [Normal Saline] 1,000 ml IV STAT
[2019-02-27 11:44] LABS: BLOOD UREA NITROGEN,BUN 20 mg/dL (7.0-18.0); CARBON DIOXIDE,CO2 21.3 mmol/L (21.0-32.0); CHLORIDE,CL 101 mmol/L (98-107); GLUCOSE RANDOM 118 mg/dL (74-106); LIPASE 48 U/L (73-393); POTASSIUM,K 3.9 mmol/L (3.5-5.1); SODIUM,NA 137 mmol/L (136-145)
== END 2019-02-27 13:57 | disposition home or self-care (01) ==
LOC: MW.ED 10:25
DX: R11.10 Vomiting, unspecified (principal); R19.7 Diarrhea, unspecified; F17.210 Nicotine dependence, cigarettes, uncomplicated; Z88.8 Allergy status to other drugs, medicaments and biological substances
CPT/HCPCS: 36415; 80053; 81001; 83690; 84703; 85025; 96361; 96374; 96375; 99284; A9270; J1885; J2405; J7030

== ENCOUNTER 2019-10-20 07:36 | Emergency (ER) | payer BC, MEDICAID ==
--- NOTE | 2019-10-20 07:48 | EDM.PDOC ---
<Sybil Styles - Last Filed: 10/20/19 10:27> ED HPI GENERAL MEDICAL PROBLEM - General Chief Complaint: General Stated Complaint: RT SIDE PAIN Time Seen by Provider: 10/20/19 07:47 Source of Information: Reports: Patient History Limitations: Reports: No Limitations - History of Present Illness INITIAL COMMENTS - FREE TEXT/NARRATIVE: 28 yo female presenting today w. right flank/back pain x 4 months; states she believes her previous UTI was not fully treated and had persistent pain; used ibuprofen w. some relief; however this AM pt. felt pain in her right shoulder and was concerned . Endorsed pain could also be from ETOH abuse; drinks 1/4 to 1/2 of Vodka+beer nightly "since COVID started". Otherwise denies other illicit drug abuse. Vapes only. Used Ibuprofen throughout week; 1-2 times (200mg x 2) with mild relief Mentions pain is sharp/intermittent, radiating into right shoulder, worsened w. deep breaths and foods; improved initially w. ibuprofen but mentioned water was making her nauseous this AM. Endorsed some mild N/V ; non-bilious as well; did not improve with water consumption denies Has not taken her Abilify or other meds for her Bipolar disorder x 3 weeks Right Upper Abdomen Pain Score (Numeric/FACES): 8 - Related Data Allergies Allergy/AdvReac Type Severity Reaction Status Date / Time aspirin Allergy Nausea and Verified 10/20/19 07:59 Vomiting naproxen Allergy Nausea and Verified 10/20/19 07:59 Vomiting Home Meds: Home Meds ARIPiprazole [Abilify] 2 mg PO DAILY 10/20/19 [History] Diclofenac Sodium [Voltaren] 50 mg PO TID 5 Days #15 tab.ec 10/20/19 [Rx] FLUoxetine [PROzac] 10 mg PO DAILY 10/20/19 [History] Ondansetron [Zofran ODT] 4 mg PO Q6H PRN 3 Days #12 tab.dis 10/20/19 [Rx] Sulfamethoxazole/Trimethoprim [Bactrim Ds Tablet] 1 each PO BID 5 Days #10 tablet 10/20/19 [Rx] Past Medical History HEENT History: Reports: None Cardiovascular History: Reports: None Respiratory History: Reports: Asthma Gastrointestinal History: Reports: None Genitourinary History: Reports: None 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: , 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 (See Below) Other CEMETERY LABORER History: Uterine biopsy Musculoskeletal History: Reports: None Neurological History: Reports: None Psychiatric History: Reports: None Endocrine/Metabolic History: Reports: Other (See Below) Other Endocrine/Metabolic History: Biopsy on lymph nodes Hematologic History: Reports: None Immunologic History: Reports: None Oncologic (Cancer) History: Reports: None Dermatologic History: Reports: None - Infectious Disease History Infectious Disease History: Reports: C-Difficile - Past Surgical History Head Surgeries/Procedures: Reports: None HEENT Surgical History: Reports: None Cardiovascular Surgical History: Reports: None Respiratory Surgical History: Reports: None GI Surgical History: Reports: None Female Surgical History: Reports: None Endocrine Surgical History: Reports: None Neurological Surgical History: Reports: None Musculoskeletal Surgical History: Reports: None Oncologic Surgical History: Reports: None Dermatological Surgical History: Reports: None Social & Family History - Family History Family Medical History: Noncontributory - Caffeine Use Caffeine Use: Reports: Coffee ED ROS GENERAL - Review of Systems Review Of Systems: See Below Constitutional: Reports: No Symptoms Respiratory: Reports: No Symptoms, Shortness of Breath (due to pain ) Cardiovascular: Reports: No Symptoms Endocrine: Reports: No Symptoms GI/Abdominal: Reports: Abdominal Pain, Decreased Appetite, Nausea, Vomiting. Denies: Bloody Stool, Constipation, Diarrhea : Reports: Flank Pain. Denies: Discharge, Dysuria, Frequency, Hematuria, Urgency Musculoskeletal: Reports: Shoulder Pain (right ). Denies: Back Pain Skin: Reports: No Symptoms Neurological: Reports: No Symptoms. Denies: Headache Psychiatric: Reports: No Symptoms ED EXAM, GENERAL - Physical Exam Exam: See Below Exam Limited By: No Limitations General Appearance: Alert, Mild Distress Ears: Normal External Exam Nose: Normal Inspection, Normal Mucosa Throat/Mouth: Normal Inspection, Normal Oropharynx Head: Atraumatic, Normocephalic Neck: Supple, Non-Tender Respiratory/Chest: No Respiratory Distress, Lungs Clear, Normal Breath Sounds, Chest Non-Tender Cardiovascular: Tachycardia (regualr rhythm ) GI/Abdominal: Other (+RUQ abd. tenderness; +Murphs sign...no rebound tenderness, no RLQ tenderness/ no tenderness elicited at McBurneys point.....no periumbilical and or left flank tenderness...) Back Exam: Full Range of Motion Extremities: Normal Range of Motion, Non-Tender Neurological: Alert, Oriented Psychiatric: Normal Affect Skin Exam: Warm, Dry, Intact Course - Re-Assessments/Exams Free Text/Narrative Re-Assessment/Exam: post tordol/fluid/anti-emetic: pt endorsed feeling marginally better; improved nausea; no vomiting since arrival 10/20/19 09:[address] Tipton of Surgery; agreed to see/asses pt. States since pt .is stable, no stones and or gallbladder wall edema ; recom mended medical management at this time 10/20/19 09:21 Provided Morphine to patient with increasing pain control, discussed need for PCP and surgery outpatient follow up. Discussed diet modifications and ETOH abstinence. +Blood in UA; dose of Ceftriaxone provided; will send home with Bactrim DS; cx ordered; will switch if necessary pending results 10/20/19 09:57 Free Text/Narrative Re-Assessment/Exam: Based off of H&P: pain in RUQ w. tenderness+daily ETOH consumption +morbid obesity: concerns for Biliary pathology was discussed. Also considered Pancreatitis, Fatty liver: elevated alk phos, LFT's WNL; Discussed case with Dr Tipton of Surgery; advised to manage medically ; can reassess if symptoms worsen and/or not improve No RLQ tenderness appreciated; no flank tenderness. HCG negative, no vaginal bleeding, no discharge per patient Denies Hematuria/urgency/frequency:moderate blood in UA : treated with one time dose of CTX and UCx ordered No suprapubic tenderness, minimal concerns for ovarian torsion at this time Right shoulder pain improved w. pain management 10/20/19 08:25 10/20/19 08:29 10/20/19 08:32 10/20/19 10:17 RE-examination:endorses pain has improved significantly since arrival. rates it at a 2/10. Vast improvement of RUQ tenderness; still no rebound tenderness. Mentating well; understood plan including follow up with PCP and General Surgery 10/20/19 10:30 Departure - Departure Time of Disposition: 10:28 Disposition: Home, Self-Care 01 Clinical Impression: Colic, biliary, Hematuria - Discharge Information Prescriptions: Sulfamethoxazole/Trimethoprim [Bactrim Ds Tablet] 1 each PO BID 5 Days #10 tablet Diclofenac Sodium [Voltaren] 50 mg PO TID 5 Days #15 tab.ec Ondansetron [Zofran ODT] 4 mg PO Q6H PRN 3 Days #12 tab.dis PRN Reason: Nausea Instructions: Biliary Colic, Adult, Hematuria, Adult Referrals: PCP,None [Ordering Only Provider] - Forms: ED Department Discharge Additional Instructions: The following information is given to patients seen in the emergency department who are being discharged to home. This information is to outline your options for follow-up care. We provide all patients seen in our emergency department with a follow-up referral. The need for follow-up, as well as the timing and circumstances, are variable depending upon the specifics of your emergency department visit. If you don't have a primary care physician on staff, we will provide you with a referral. We always advise you to contact your personal physician following an emergency department visit to inform them of the circumstance of the visit and for follow-up with them and/or the need for any referrals to a consulting specialist. The emergency department will also refer you to a specialist when appropriate. This referral assures that you have the opportunity for follow-up care with a specialist. All of these measure are taken in an effort to provide you with optimal care, which includes your follow-up. Under all circumstances we always encourage you to contact your private physician who remains a resource for coordinating your care. When calling for follow-up care, please make the office aware that this follow-up is from your recent emergency room visit. If for any reason you are refused follow-up, please contact the [facility] Emergency Department at and asked to speak to the emergency department charge nurse. [facility] [address] [place] [id number] [facility] [address] [place] [id number] [facility] Professional [facility] [address] [place] [address], [address] [place] [address] Advised to follow up with both outpatient PCP and General Surgery in near future. Advised to return to Emergency department if pain worsens, persists despite medication and or if other symptomatology develop. <Ford Vu - Last Filed: 10/20/19 15:10> Course - Vital Signs Last Recorded V/S: Last Vital Signs Temp 96.7 F L 10/20/19 09:28 Pulse 97 10/20/19 10:45 Resp 17 10/20/19 10:45 BP 125/76 10/20/19 10:45 Pulse Ox 97 10/20/19 10:45 - Orders/Labs/Meds Labs: Laboratory Tests 10/20/19 10/20/19 10/20/19 Range/Units 07:45 07:45 08:15 WBC 12.55 H (4.0-11.0) K/uL RBC 4.41 (4.30-5.90) M/uL Hgb 11.5 L (12.0-16.0) g/dL Hct 37.0 (36.0-46.0) % MCV 83.9 (80.0-98.0) fL MCH 26.1 L (27.0-32.0) pg MCHC 31.1 (31.0-37.0) g/dL RDW Std Deviation 47.7 (28.0-62.0) fl RDW Coeff of Krista 16 H (11.0-15.0) % Plt Count 348 (150-400) K/uL MPV 8.90 (7.40-12.00) fL Neut % (Auto) 77.1 (48.0-80.0) % Lymph % (Auto) 12.4 L (16.0-40.0) % [place] % (Auto) 8.6 (0.0-15.0) % Eos % (Auto) 1.6 (0.0-7.0) % Baso % (Auto) 0.3 (0.0-1.5) % Neut # (Auto) 9.7 H (1.4-5.7) K/uL Lymph # (Auto) 1.6 (0.6-2.4) K/uL [place] # (Auto) 1.1 H (0.0-0.8) K/uL Eos # (Auto) 0.2 (0.0-0.7) K/uL Baso # (Auto) 0.0 (0.0-0.1) K/uL Nucleated RBC % 0.0 /100WBC Nucleated RBCs # 0 K/uL Sodium (136-145) mmol/L Potassium (3.5-5.1) mmol/L Chloride (98-107) mmol/L Carbon Dioxide (21.0-32.0) mmol/L BUN (7.0-18.0) mg/dL Creatinine (0.6-1.0) mg/dL Est Cr Clr Drug Dosing mL/min Estimated GFR (MDRD) ml/min Glucose (74-106) mg/dL Calcium (8.5-10.1) mg/dL Total Bilirubin (0.2-1.0) mg/dL AST (15-37) IU/L ALT (14-63) IU/L Alkaline Phosphatase (46-116) U/L Total Protein (6.4-8.2) g/dL Albumin (3.4-5.0) g/dL Globulin (2.6-4.0) g/dL Albumin/Globulin Ratio (0.9-1.6) Lipase (73-393) U/L Urine Color YELLOW Urine Appearance HAZY Urine pH 5.5 (5.0-8.0) Ur Specific [place] >= 1.030 (1.001-1.035) Urine Protein NEGATIVE (NEGATIVE) mg/dL Urine Glucose (UA) NEGATIVE (NEGATIVE) mg/dL Urine Ketones NEGATIVE (NEGATIVE) mg/dL Urine Occult Blood MODERATE H (NEGATIVE) Urine Nitrite NEGATIVE (NEGATIVE) Urine Bilirubin NEGATIVE (NEGATIVE) Urine Urobilinogen 0.2 (<2.0) EU/dL Ur Leukocyte Esterase NEGATIVE (NEGATIVE) Urine RBC 4-6 (0-2/HPF) Urine WBC 0-2 (0-5/HPF) Ur Epithelial Cells FEW (NONE-FEW) Amorphous Sediment LIGHT (NEGATIVE) Urine Bacteria FEW (NEGATIVE) Urine Mucus LIGHT (NONE-MOD) Urine HCG, Qual NEGATIVE (NEGATIVE) 10/20/19 Range/Units 08:15 WBC (4.0-11.0) K/uL RBC (4.30-5.90) M/uL Hgb (12.0-16.0) g/dL Hct (36.0-46.0) % MCV (80.0-98.0) fL MCH (27.0-32.0) pg MCHC (31.0-37.0) g/dL RDW Std Deviation (28.0-62.0) fl RDW Coeff of Krista (11.0-15.0) % Plt Count (150-400) K/uL MPV (7.40-12.00) fL Neut % (Auto) (48.0-80.0) % Lymph % (Auto) (16.0-40.0) % [place] % (Auto) (0.0-15.0) % Eos % (Auto) (0.0-7.0) % Baso % (Auto) (0.0-1.5) % Neut # (Auto) (1.4-5.7) K/uL Lymph # (Auto) (0.6-2.4) K/uL [place] # (Auto) (0.0-0.8) K/uL Eos # (Auto) (0.0-0.7) K/uL Baso # (Auto) (0.0-0.1) K/uL Nucleated RBC % /100WBC Nucleated RBCs # K/uL Sodium 141 (136-145) mmol/L Potassium 3.8 (3.5-5.1) mmol/L Chloride 106 (98-107) mmol/L Carbon Dioxide 23.6 (21.0-32.0) mmol/L BUN 13 (7.0-18.0) mg/dL Creatinine 0.8 (0.6-1.0) mg/dL Est Cr Clr Drug Dosing 91.21 mL/min Estimated GFR (MDRD) > 60.0 ml/min Glucose 104 (74-106) mg/dL Calcium 8.1 L (8.5-10.1) mg/dL Total Bilirubin 0.1 L (0.2-1.0) mg/dL AST 18 (15-37) IU/L ALT 23 (14-63) IU/L Alkaline Phosphatase 144 H (46-116) U/L Total Protein 7.6 (6.4-8.2) g/dL Albumin 3.0 L (3.4-5.0) g/dL Globulin 4.6 H (2.6-4.0) g/dL Albumin/Globulin Ratio 0.7 L (0.9-1.6) Lipase 78 (73-393) U/L Urine Color Urine Appearance Urine pH (5.0-8.0) Ur Specific [place] (1.001-1.035) Urine Protein (NEGATIVE) mg/dL Urine Glucose (UA) (NEGATIVE) mg/dL Urine Ketones (NEGATIVE) mg/dL Urine Occult Blood (NEGATIVE) Urine Nitrite (NEGATIVE) Urine Bilirubin (NEGATIVE) Urine Urobilinogen (<2.0) EU/dL Ur Leukocyte Esterase (NEGATIVE) Urine RBC (0-2/HPF) Urine WBC (0-5/HPF) Ur Epithelial Cells (NONE-FEW) Amorphous Sediment (NEGATIVE) Urine Bacteria (NEGATIVE) Urine Mucus (NONE-MOD) Urine HCG, Qual (NEGATIVE) Meds: Medications Discontinued Medications Generic Name Dose Route Start Last Admin Trade Name Hedy PRN Reason Stop Dose Admin Ceftriaxone Sodium 1 gm 10/20/19 09:32 10/20/19 10:15 Rocephin IVPUSH 10/20/19 09:33 Not Given ONETIME ONE Sodium Chloride 500 mls @ 999 mls/hr 10/20/19 08:30 Normal Saline IV STAT NIKKI Sodium Chloride 1,000 mls @ 999 mls/hr 10/20/19 08:31 10/20/19 08:29 Normal Saline IV 10/20/19 09:31 999 mls/hr STAT ONE Administration Ceftriaxone Sodium/Dextrose Confirm 10/20/19 09:57 10/20/19 10:12 Rocephin In Dextrose,Iso-Osm 1 Gm/50 Ml Administered 10/20/19 09:58 Not Given Dose 50 mls @ as directed .ROUTE .STK-MED ONE Ceftriaxone Sodium/Dextrose 1 50 mls @ 100 mls/hr 10/20/19 10:01 10/20/19 10:14 gm/ Premix IV 10/20/19 10:30 100 mls/hr ONETIME ONE Administration Ketorolac Tromethamine 30 mg 10/20/19 08:19 10/20/19 08:30 Toradol IVPUSH 10/20/19 08:20 30 mg ONETIME ONE Administration Morphine Sulfate 4 mg 10/20/19 09:31 10/20/19 10:12 Morphine IVPUSH 10/20/19 09:32 4 mg ONETIME ONE Administration Ondansetron HCl 4 mg 10/20/19 08:31 10/20/19 08:36 Zofran IVPUSH 10/20/19 08:32 4 mg ONETIME ONE Administration Departure - Discharge Information *PRESCRIPTION DRUG MONITORING PROGRAM REVIEWED*: Not Applicable *COPY OF PRESCRIPTION DRUG MONITORING REPORT IN PATIENT DRE: Not Applicable Sepsis Event Note (ED) - Focused Exam Vital Signs: Vital Signs Temp Pulse Resp BP Pulse Ox 10/20/19 10:45 97 17 125/76 97 10/20/19 10:11 94 18 115/68 96 10/20/19 09:28 96.7 F L 95 18 110/70 96 10/20/19 07:45 97.3 F 112 H 18 112/86 96
[2019-10-20] MEDS ORDERED: Ketorolac 30 MG/ML SDV IVPUSH ONE (08:19)
[2019-10-20] MEDS ORDERED: Sodium Chloride 0.9% 500 ML IV SCH (08:30)
[2019-10-20] MEDS ORDERED: Sodium Chloride 0.9% 1,000 ML IV ONE (08:31)
[2019-10-20] MEDS ORDERED: Ondansetron 4 MG/2 ML SDV IVPUSH ONE (08:31)
[2019-10-20 08:43] LABS: BLOOD UREA NITROGEN,BUN 13 mg/dL (7.0-18.0); CARBON DIOXIDE,CO2 23.6 mmol/L (21.0-32.0); CHLORIDE,CL 106 mmol/L (98-107); GLUCOSE RANDOM 104 mg/dL (74-106); LIPASE 78 U/L (73-393); POTASSIUM,K 3.8 mmol/L (3.5-5.1); SODIUM,NA 141 mmol/L (136-145)
--- NOTE | 2019-10-20 09:09 | US ---
Limited abdominal ultrasound: Multiple real-time images of the upper right abdomen were obtained. Visualized portions of the pancreas shows no discrete abnormality. Right kidney shows no hydronephrosis or mass and has a length of 10.5 cm. Gallbladder contains no shadowing gallstones. No gallbladder wall thickening or biliary duct dilatation is seen. Liver shows no discrete abnormality. Impression: 1. No abnormality is identified on right upper quadrant abdominal ultrasound. Diagnostic code #1 This report was dictated in MDT
[2019-10-20] MEDS ORDERED: Morphine 4 MG/ML Syringe IVPUSH ONE (09:31)
[2019-10-20] MEDS ORDERED: cefTRIAXone 1 GM Vial IVPUSH ONE (09:32)
[2019-10-20] MEDS ORDERED: cefTRIAXone 1 GM in Premix Bag 1 BAG IV ONE (10:01)
== END 2019-10-20 10:52 | disposition home or self-care (01) ==
LOC: MW.ED 07:36
DX: K80.50 Calculus of bile duct without cholangitis or cholecystitis without obstruction (principal); R31.9 Hematuria, unspecified; R11.2 Nausea with vomiting, unspecified; Z88.6 Allergy status to analgesic agent; Z88.8 Allergy status to other drugs, medicaments and biological substances; Z79.899 Other long term (current) drug therapy
CPT/HCPCS: 76705; 80053; 81001; 81025; 83690; 85025; 96361; 96365; 96375; 99284; J0696; J1885; J2270; J2405; J7030; 99283

== ENCOUNTER 2019-12-25 09:50 | Emergency (ER) | payer MEDICAID, OTHER ==
[2019-12-25] MEDS ORDERED: Sodium Chloride 0.9% 10 ML Syringe FLUSH PRN (10:20)
[2019-12-25] MEDS ORDERED: Sodium Chloride 0.9% 2.5 ML Syringe FLUSH PRN (10:20)
[2019-12-25] MEDS ORDERED: Sodium Chloride 0.9% 1,000 ML IV ONE (10:33)
[2019-12-25] MEDS ORDERED: Ketorolac 30 MG/ML SDV IVPUSH ONE (10:34)
[2019-12-25] MEDS ORDERED: Ondansetron 4 MG/2 ML SDV IVPUSH ONE (10:34)
--- NOTE | 2019-12-25 10:39 | EDM.PDOC ---
ED HPI GENERAL MEDICAL PROBLEM - General Chief Complaint: Fever Stated Complaint: RT SIDE ABDOMINAL PAIN INTO BACK Time Seen by Provider: 12/25/19 10:20 Source of Information: Reports: Patient History Limitations: Reports: No Limitations - History of Present Illness INITIAL COMMENTS - FREE TEXT/NARRATIVE: HISTORY AND PHYSICAL: History of present illness: Patient is a 29-year-old female who presents to the ED today with concern of lower abdominal pain and fevers over the past 2 to 3 days. Patient states that she has been having intermittent fevers over the last 1 month that are low-grade around 100-101 and states that they come and go and mostly at night. Patient states that she has had some low-grade abdominal pain over the course of the month that is also coming and going but over the course of the weekend has been constant. Patient states that the pain is right-sided and worse with movement and better when laying down. Patient states that she is also had a low-grade fever at home all day yesterday around 100-101 and states that she has been taking ibuprofen and Tylenol for fevers. Patient states that she is also been having some low back pain that is similar to when she was dx with sciatica in the passed. Patient states she does drink alcohol 4 x per week and 6-8 drinks when she does drink alcohol. Patient denies chest pain, shortness of breath. Denies headache, neck stiff ness, change in vision, syncope, or near syncope. Denies nausea, vomiting, diarrhea, constipation, or dysuria. Has not noted any blood in urine or stool. Patient has been eating and drinking appropriately. Review of systems: As per history of present illness and below otherwise all systems reviewed and negative. Past medical history: As per history of present illness and as reviewed below otherwise noncontributory. Surgical history: As per history of present illness and as reviewed below otherwise noncontributory. Social history: See social history for further information Family history: As per history of present illness and as reviewed below otherwise noncontributory. Physical exam: General: Patient is alert, oriented, and in no acute distress. Patient laying comfortably on exam table. HEENT: Atraumatic, normocephalic, pupils equal and reactive bilaterally, negative for conjunctival pallor or scleral icterus, mucous membranes moist, TMs normal bilaterally, throat clear, neck supple, nontender, trachea midline. No drooling or trismus noted. No meningeal signs. No hot potato voice noted. Lungs: Clear to auscultation, breath sounds equal bilaterally, chest nontender. Heart: S1S2, regular rate and rhythm without overt murmur Abdomen: Soft, nondistended, moderate tenderness of the right sided abdomen without guarding. Negative for masses or hepatosplenomegaly. Negative for costovertebral tenderness. Pelvis: Stable nontender. Genitourinary: Deferred. Rectal: Deferred. Skin: Intact, warm, dry. No lesions or rashes noted. Extremities: Atraumatic, negative for cords or calf pain. Neurovascular unremarkable. Neuro: Awake, alert, oriented. Cranial nerves II through XII unremarkable. Cerebellum unremarkable. Motor and sensory unremarkable throughout. Exam nonfocal. Notes: Dr. Vu verbally involved in patients care. Patient did have an abdominal pelvic CT done on 10/06/2018 that did show the liver density lesions that were concerning at the time for metastatic disease. Patient at that time was instructed to follow-up with her primary care provider and the general surgeon. I did ask patient if she did follow-up regarding these lesions and she states that she has not followed up because she has not had health insurance and could not afford to. Patient states she did have a bx of a chest lymph node in 2017 in [place] but states it was negative for cancer according to patient. I did call and speak to Dr. Brown and thoroughly discussed patient's case. He does feel patient would best be transferred where patient could receive oncology consult. Currently [facility], [facility], and [facility] on diversion. [place], [place], discussed patient's case with Dr. Silvestre and is accepting of transfer. Patient is vitally stable at this time has been stable throughout stay in ED. EMS arranged. Voices understanding and is agreeable to plan of care. Denies any further questions or concerns at this time. Diagnostics: CBC, CMP, UA w cult, uhcg, CXR, lipase, abd/pelvic w cont, lactate, blood culture x 2, chest ct w cont Therapeutics: NS, Zofran, Toradol, Zosyn, Vancomycin Impression: Leukocytosis r/o sepsis Abdominal pain Abdominal lesions r/o metastatic disease Mediastinal mass r/o metastatic disease Plan: Transfer via EMS [facility] to Dr. Pflug. Definitive disposition and diagnosis as appropriate pending reevaluation and review of above. right upper abdominal Pain Score (Numeric/FACES): 6 - Related Data Allergies Allergy/AdvReac Type Severity Reaction Status Date / Time aspirin Allergy Nausea and Verified 12/25/19 10:04 Vomiting naproxen Allergy Nausea and Verified 12/25/19 10:04 Vomiting Home Meds: Home Meds . [No Known Home Meds] 12/25/19 [History] Past Medical History HEENT History: Reports: None Cardiovascular History: Reports: None Respiratory History: Reports: Asthma Gastrointestinal History: Reports: None Genitourinary History: Reports: None COMPUTER REPAIRER History: Reports: , Other (See Below) Other COMPUTER REPAIRER History: Uterine biopsy Musculoskeletal History: Reports: None Neurological History: Reports: None Psychiatric History: Reports: Anxiety, Bipolar, Depression Endocrine/Metabolic History: Reports: Other (See Below) Other Endocrine/Metabolic History: Biopsy on lymph nodes Hematologic History: Reports: None Immunologic History: Reports: None Oncologic (Cancer) History: Reports: None Dermatologic History: Reports: None - Infectious Disease History Infectious Disease History: Reports: Chicken Pox - Past Surgical History Head Surgeries/Procedures: Reports: None HEENT Surgical History: Reports: None Cardiovascular Surgical History: Reports: None Respiratory Surgical History: Reports: None GI Surgical History: Reports: None Female Surgical History: Reports: None Endocrine Surgical History: Reports: None Neurological Surgical History: Reports: None Musculoskeletal Surgical History: Reports: None Oncologic Surgical History: Reports: None Dermatological Surgical History: Reports: None Social & Family History - Family History Family Medical History: Noncontributory - Tobacco Use Smoking Status *Q: Current Every Day Smoker Years of Tobacco use: 7 Packs/Tins Daily: 0 - Caffeine Use Caffeine Use: Reports: Coffee - Alcohol Use Days Per Week of Alcohol Use: 4 Number of Drinks Per Day: 6 Total Drinks Per Week: 24 - Recreational Drug Use Recreational Drug Use: No ED ROS GENERAL - Review of Systems Review Of Systems: Comprehensive ROS is negative, except as noted in HPI. ED EXAM, GENERAL - Physical Exam Exam: See Below (see dictation) Course - Vital Signs Last Recorded V/S: Last Vital Signs Temp 97.7 F 12/25/19 16:45 Pulse 94 12/25/19 16:45 Resp 16 12/25/19 16:45 BP 127/71 12/25/19 16:45 Pulse Ox 99 12/25/19 16:45 - Orders/Labs/Meds Orders: Active Orders 24 hr Category Date Time Status Communication Order [RC] STAT Care 12/25/19 15:44 Active CULTURE BLOOD [BC] Stat Lab 12/25/19 10:16 Received CULTURE BLOOD [BC] Stat Lab 12/25/19 10:56 Received CULTURE URINE [RM] Stat Lab 12/25/19 10:12 Received Sodium Chloride 0.9% [Saline Flush] Med 12/25/19 10:20 Active 10 ml FLUSH ASDIRECTED PRN Sodium Chloride 0.9% [Saline Flush] Med 12/25/19 10:20 Active 2.5 ml FLUSH ASDIRECTED PRN Blood Culture x2 Reflex Set [OM.PC] Stat Oth 12/25/19 10:40 Ordered Saline Lock Insert [OM.PC] Stat Oth 12/25/19 10:20 Ordered Medication Orders Sodium Chloride (Saline Flush) 10 ml FLUSH ASDIRECTED PRN PRN Reason: Keep Vein Open Last Admin: 12/25/19 10:49 Dose: 10 ml Documented by: LAI Sodium Chloride (Saline Flush) 2.5 ml FLUSH ASDIRECTED PRN PRN Reason: Keep Vein Open Last Admin: 12/25/19 10:49 Dose: 2.5 ml Documented by: LAI Labs: Laboratory Tests 12/25/19 12/25/19 12/25/19 Range/Units 10:12 10:12 10:16 WBC 17.64 H (4.0-11.0) K/uL RBC 4.93 (4.30-5.90) M/uL Hgb 12.8 (12.0-16.0) g/dL Hct 41.4 (36.0-46.0) % MCV 84.0 (80.0-98.0) fL MCH 26.0 L (27.0-32.0) pg MCHC 30.9 L (31.0-37.0) g/dL RDW Std Deviation 47.3 (28.0-62.0) fl RDW Coeff of Krista 16 H (11.0-15.0) % Plt Count 374 (150-400) K/uL MPV 9.60 (7.40-12.00) fL Neut % (Auto) 82.4 H (48.0-80.0) % Lymph % (Auto) 8.5 L (16.0-40.0) % [place] % (Auto) 8.4 (0.0-15.0) % Eos % (Auto) 0.5 (0.0-7.0) % Baso % (Auto) 0.2 (0.0-1.5) % Neut # (Auto) 14.5 H (1.4-5.7) K/uL Lymph # (Auto) 1.5 (0.6-2.4) K/uL [place] # (Auto) 1.5 H (0.0-0.8) K/uL Eos # (Auto) 0.1 (0.0-0.7) K/uL Baso # (Auto) 0.0 (0.0-0.1) K/uL Nucleated RBC % 0.0 /100WBC Nucleated RBCs # 0 K/uL Lactate (0.20-2.00) mmol/L Sodium (136-145) mmol/L Potassium (3.5-5.1) mmol/L Chloride (98-107) mmol/L Carbon Dioxide (21.0-32.0) mmol/L BUN (7.0-18.0) mg/dL Creatinine (0.6-1.0) mg/dL Est Cr Clr Drug Dosing mL/min Estimated GFR (MDRD) ml/min Glucose (74-106) mg/dL Calcium (8.5-10.1) mg/dL Total Bilirubin (0.2-1.0) mg/dL AST (15-37) IU/L ALT (14-63) IU/L Alkaline Phosphatase (46-116) U/L Total Protein (6.4-8.2) g/dL Albumin (3.4-5.0) g/dL Globulin (2.6-4.0) g/dL Albumin/Globulin Ratio (0.9-1.6) Lipase (73-393) U/L Urine Color YELLOW Urine Appearance CLEAR Urine pH 6.5 (5.0-8.0) Ur Specific [place] 1.025 (1.001-1.035) Urine Protein NEGATIVE (NEGATIVE) mg/dL Urine Glucose (UA) NEGATIVE (NEGATIVE) mg/dL Urine Ketones TRACE H (NEGATIVE) mg/dL Urine Occult Blood MODERATE H (NEGATIVE) Urine Nitrite NEGATIVE (NEGATIVE) Urine Bilirubin SMALL H (NEGATIVE) Urine Ictotest NEGATIVE Urine Urobilinogen 1.0 (<2.0) EU/dL Ur Leukocyte Esterase TRACE H (NEGATIVE) Urine RBC 2-3 (0-2/HPF) Urine WBC 1-2 (0-5/HPF) Ur Epithelial Cells MODERATE (NONE-FEW) Urine Bacteria 1+ H (NEGATIVE) Urine HCG, Qual NEGATIVE (NEGATIVE) SARS-CoV-2 RNA (JASON) (NEGATIVE) 12/25/19 12/25/19 12/25/19 Range/Units 10:16 10:16 13:08 WBC (4.0-11.0) K/uL RBC (4.30-5.90) M/uL Hgb (12.0-16.0) g/dL Hct (36.0-46.0) % MCV (80.0-98.0) fL MCH (27.0-32.0) pg MCHC (31.0-37.0) g/dL RDW Std Deviation (28.0-62.0) fl RDW Coeff of Krista (11.0-15.0) % Plt Count (150-400) K/uL MPV (7.40-12.00) fL Neut % (Auto) (48.0-80.0) % Lymph % (Auto) (16.0-40.0) % [place] % (Auto) (0.0-15.0) % Eos % (Auto) (0.0-7.0) % Baso % (Auto) (0.0-1.5) % Neut # (Auto) (1.4-5.7) K/uL Lymph # (Auto) (0.6-2.4) K/uL [place] # (Auto) (0.0-0.8) K/uL Eos # (Auto) (0.0-0.7) K/uL Baso # (Auto) (0.0-0.1) K/uL Nucleated RBC % /100WBC Nucleated RBCs # K/uL Lactate 0.7 (0.20-2.00) mmol/L Sodium 138 (136-145) mmol/L Potassium 3.8 (3.5-5.1) mmol/L Chloride 103 (98-107) mmol/L Carbon Dioxide 23.2 (21.0-32.0) mmol/L BUN 9 (7.0-18.0) mg/dL Creatinine 0.8 (0.6-1.0) mg/dL Est Cr Clr Drug Dosing 90.41 mL/min Estimated GFR (MDRD) > 60.0 ml/min Glucose 107 H (74-106) mg/dL Calcium 9.0 (8.5-10.1) mg/dL Total Bilirubin 0.6 (0.2-1.0) mg/dL AST 23 (15-37) IU/L ALT 37 (14-63) IU/L Alkaline Phosphatase 119 H (46-116) U/L Total Protein 8.4 H (6.4-8.2) g/dL Albumin 3.3 L (3.4-5.0) g/dL Globulin 5.1 H (2.6-4.0) g/dL Albumin/Globulin Ratio 0.7 L (0.9-1.6) Lipase 55 L (73-393) U/L Urine Color Urine Appearance Urine pH (5.0-8.0) Ur Specific [place] (1.001-1.035) Urine Protein (NEGATIVE) mg/dL Urine Glucose (UA) (NEGATIVE) mg/dL Urine Ketones (NEGATIVE) mg/dL Urine Occult Blood (NEGATIVE) Urine Nitrite (NEGATIVE) Urine Bilirubin (NEGATIVE) Urine Ictotest Urine Urobilinogen (<2.0) EU/dL Ur Leukocyte Esterase (NEGATIVE) Urine RBC (0-2/HPF) Urine WBC (0-5/HPF) Ur Epithelial Cells (NONE-FEW) Urine Bacteria (NEGATIVE) Urine HCG, Qual (NEGATIVE) SARS-CoV-2 RNA (JASON) NEGATIVE (NEGATIVE) Meds: Medications Generic Name Dose Route Start Last Admin Trade Name Freq PRN Reason Stop Dose Admin Sodium Chloride 10 ml 12/25/19 10:20 12/25/19 10:49 Saline Flush FLUSH 10 ml ASDIRECTED PRN Administration Keep Vein Open Sodium Chloride 2.5 ml 12/25/19 10:20 12/25/19 10:49 Saline Flush FLUSH 2.5 ml ASDIRECTED PRN Administration Keep Vein Open Discontinued Medications Generic Name Dose Route Start Last Admin Trade Name Freq PRN Reason Stop Dose Admin Sodium Chloride 1,000 mls @ 999 mls/hr 12/25/19 10:33 12/25/19 10:46 Normal Saline IV 12/25/19 11:33 999 mls/hr BOLUS ONE Administration Piperacillin Sod/Tazobactam 50 mls @ 100 mls/hr 12/25/19 12:30 12/25/19 13:03 Sod 3.375 gm/ Sodium Chloride IV 12/25/19 12:59 100 mls/hr ONETIME ONE Administration Vancomycin HCl 1.5 gm/ Premix 300 mls @ 200 mls/hr 12/25/19 12:52 12/25/19 13:41 IV 12/25/19 14:21 200 mls/hr NOW STA Administration Ketorolac Tromethamine 30 mg 12/25/19 10:34 12/25/19 10:46 Toradol IVPUSH 12/25/19 10:35 30 mg ONETIME ONE Administration Ondansetron HCl 4 mg 12/25/19 10:34 12/25/19 10:46 Zofran IVPUSH 12/25/19 10:35 4 mg ONETIME ONE Administration Departure - Departure Time of Disposition: 17:17 Disposition: DC/[facility] to [facility] 02 Clinical Impression: Liver lesion, Bone lesion, Mediastinal mass Leukocytosis Qualifiers: Leukocytosis type: unspecified Qualified Code(s): D72.829 - Elevated white blood cell count, unspecified - Discharge Information Referrals: PCP,None [Primary Care Provider] - Forms: ED Department Discharge Sepsis Event Note (ED) - Evaluation Sepsis Screening Result: Possible Sepsis Risk - Focused Exam Vital Signs: Vital Signs Temp Pulse Resp BP Pulse Ox 12/25/19 16:45 97.7 F 94 16 127/71 99 12/25/19 09:59 96.5 F L 104 H 16 117/81 94 L - My Orders Last 24 Hours: My Active Orders 12/25/19 10:12 CULTURE URINE [RM] Stat 12/25/19 10:16 CULTURE BLOOD [BC] Stat 12/25/19 10:20 Sodium Chloride 0.9% [Saline Flush] 10 ml FLUSH ASDIRECTED PRN Sodium Chloride 0.9% [Saline Flush] 2.5 ml FLUSH ASDIRECTED PRN Saline Lock Insert [OM.PC] Stat 12/25/19 10:40 Blood Culture x2 Reflex Set [OM.PC] Stat 12/25/19 10:56 CULTURE BLOOD [BC] Stat 12/25/19 15:44 Communication Order [RC] STAT - Assessment/Plan Last 24 Hours: My Active Orders 12/25/19 10:12 CULTURE URINE [RM] Stat 12/25/19 10:16 CULTURE BLOOD [BC] Stat 12/25/19 10:20 Sodium Chloride 0.9% [Saline Flush] 10 ml FLUSH ASDIRECTED PRN Sodium Chloride 0.9% [Saline Flush] 2.5 ml FLUSH ASDIRECTED PRN Saline Lock Insert [OM.PC] Stat 12/25/19 10:40 Blood Culture x2 Reflex Set [OM.PC] Stat 12/25/19 10:56 CULTURE BLOOD [BC] Stat 12/25/19 15:44 Communication Order [RC] STAT
[2019-12-25 10:52] LABS: BLOOD UREA NITROGEN,BUN 9 mg/dL (7.0-18.0); CARBON DIOXIDE,CO2 23.2 mmol/L (21.0-32.0); CHLORIDE,CL 103 mmol/L (98-107); GLUCOSE RANDOM 107 mg/dL (74-106); LIPASE 55 U/L (73-393); POTASSIUM,K 3.8 mmol/L (3.5-5.1); SODIUM,NA 138 mmol/L (136-145)
--- NOTE | 2019-12-25 11:47 | CT ---
CT abdomen and pelvis Technique: Multiple axial sections were obtained from above the dome of the diaphragm inferiorly to the pubic symphysis. Intravenous contrast was utilized. No oral contrast has been given. Findings: 5 low density lesions are identified within the right and left lobes of the liver. Lesion within the left lobe measures about 2.4 cm and largest lesion within the right lobe measures about 2.4 cm. These findings are suspicious for liver metastatic disease. Spleen size is normal. Adrenal glands show no nodule. Visualized lung bases show nothing acute. Kidney show symmetric contrast enhancement without hydronephrosis or mass. Multiple enlarged retroperitoneal lymph nodes are noted. Largest lymph node measures 2.0 cm in size. Pancreas shows no discrete abnormality. Gallbladder contains no calcified gallstones. IUD is noted within the uterus. No free fluid or inflammatory change is appreciated. Appendix is seen and is normal in size. Cyst is noted within the right ovary measuring 3.9 cm. Areas of sclerosis are seen within the pelvis as well as within portions of the spine. Findings are suspicious for osteoblastic metastasis. 3 lytic lesions noted within the left iliac bone. Impression: 1. Multiple low density lesions within the liver as noted above. Findings are highly suspicious for liver metastatic disease. 2. Increased retroperitoneal lymph nodes which are abnormal. This is also likely due to metastatic disease. 3. Vague areas of sclerosis within portions of the spine and pelvis which is suspicious for osseous metastatic disease. 4. 3 lytic lesions within the left iliac bone. Diagnostic code #9 This report was dictated in MDT
--- NOTE | 2019-12-25 12:12 | CR ---
Chest: Frontal view of the chest was obtained. Comparison: Prior chest x-ray of 11/21/18. Heart size and mediastinum are within normal limits. Lungs are clear with no acute parenchymal change. Bony structures are grossly intact. Impression: 1. Nothing acute is seen on frontal chest x-ray. Diagnostic code #1 This report was dictated in MDT
[2019-12-25] MEDS ORDERED: Piperacillin/Tazobactam 3.375 GM in Sodium Chloride 0.9% 50 ML IV ONE (12:30)
[2019-12-25] MEDS ORDERED: Vancomycin 1.5 GM in Sodium Chloride 0.9% 500 ML IV STA (12:36)
--- NOTE | 2019-12-25 13:31 | CT ---
CT chest Technique: Multiple axial sections through the chest were obtained. Intravenous contrast was utilized. Findings: Mediastinal mass is identified within the superior mediastinum on the left side measuring 4.7 x 3.3 cm. Small pretracheal lymph node is seen measuring about 1.5 cm in size with no pericardial thickening is seen. Several lymph nodes are seen within the subcarinal region. Lungs are clear with no acute parenchymal change. No pulmonary nodules are noted. Bone window settings were reviewed which shows lytic area within the manubrium. Several areas of sclerosis seen within the upper thoracic spine which are likely metastatic. Impression: 1. Left superior mediastinal mass with measurements as noted above. 2. Small pretracheal lymph node as well as several lymph nodes within the subcarinal region. These measure at the upper limits of normal. 3. Several sclerotic lesions within the upper thoracic spine which are likely metastatic. Lytic lesion is noted within the manubrium which is likely metastatic. Diagnostic code #9 This report was dictated in MDT
[2019-12-25] MEDS ORDERED: Iopamidol 755 MG/ML 500 ML Multipack Bottle IVPUSH STA (18:16)
== END 2019-12-25 17:06 ==
LOC: MW.ED 09:50
DX: D72.829 Elevated white blood cell count, unspecified (principal); K76.9 Liver disease, unspecified; M89.9 Disorder of bone, unspecified; J45.909 Unspecified asthma, uncomplicated; F17.210 Nicotine dependence, cigarettes, uncomplicated; J98.59 Other diseases of mediastinum, not elsewhere classified; Z88.6 Allergy status to analgesic agent; Z88.8 Allergy status to other drugs, medicaments and biological substances; Z20.828 Contact with and (suspected) exposure to other viral communicable diseases
CPT/HCPCS: 36415; 71045; 71260; 74177; 80053; 81001; 81025; 83605; 83690; 85025; 87040; 87086; 87635; 96361; 96365; 96366; 96367; 96375; 99285; J1885; J2405; J2543; J3370; J7030; J7050; Q9967; 99284; U0002

== ENCOUNTER 2020-02-23 11:02 | Emergency (ER) | payer MEDICAID ==
[2020-02-23] MEDS ORDERED: Morphine 4 MG/ML Syringe IVPUSH ONE (11:25)
[2020-02-23] MEDS ORDERED: Sodium Chloride 0.9% 10 ML SDV IV SCH (11:30)
--- NOTE | 2020-02-23 11:59 | CR ---
INDICATION: Chest pain COMPARISON: Portable chest dated 12/25/2019 TECHNIQUE: Portable AP erect chest performed at 11:34 a.m. FINDINGS: The lungs are clear. There is no evidence of pneumothorax. There is a new right-sided Port-A-Cath extending to the SVC. The heart, mediastinum and pulmonary vessels are of normal size. There is no evidence of pleural fluid. IMPRESSION: New acute process identified. Dictated by Ap Euceda MD @ Feb 23 2020 11:55AM Signed by Dr. Ap Euceda @ Feb 23 2020 11:58AM
--- NOTE | 2020-02-23 12:40 | EDM.PDOC ---
ED HPI GENERAL MEDICAL PROBLEM - General Chief Complaint: Chest Pain Stated Complaint: TROUBLE BREATHING Time Seen by Provider: 02/23/20 11:10 - History of Present Illness INITIAL COMMENTS - FREE TEXT/NARRATIVE: CHIEF COMPLAINT(S): Chest pain and shortness of breath HISTORY OF PRESENT ILLNESS: This is a 29-year-old woman with a recently diagnosed Hodgkin's lymphoma who comes to the emergency department with a chief complaint of chest pain and shortness of breath. The patient states that she got her first chemo treatment approximately 3 days ago. She states that over the last 4 days she has been experiencing fatigue but denies any nausea or vomiting. She states that starting yesterday she started to experience worsening fatigue and chest pain all throughout her anterior chest which she describes as achy not associated with any diaphoresis, nausea, or vomiting. She denies any lower extremity swelling but states that she does experience shortness of breath especially when walking. She rates her pain as 5 out of 10. She states that she took Tylenol without any relief. She states that she took Benadryl thinking it might be an allergic reaction to the chemotherapy but that also did not help. She denies any cough and her last fever was approximately 6 days ago. She denies any syncope. She denies any early onset CAD in her family denies any personal history of CAD. She states that when she was getting set up for chemotherapy they did do a evaluation of her lungs and she was order line at that time. She states that one of the drugs that she is taking does affect the lungs and they work in every evaluate this medication after multiple treatments. She denies any other symptoms REVIEW OF SYSTEMS: Constitutional: Positive for fatigue. Denies fever, chills. Eyes: Denies eye pain Ears, Nose, Mouth, & Throat: Denies earache Cardiovascular: Positive for chest pain Respiratory: Positive for shortness of breath and exertional dyspnea Gastrointestinal: Denies Nausea, vomiting, diarrhea, hematochezia. Genitourinary: Denies hematuria Skin:Denies a rash Neurological: Denies blurred vision Psychiatric: Denies depression PAST MEDICAL HISTORY: As per history of present illness and as reviewed below otherwise noncontributory. SURGICAL HISTORY: As per history of present illness and as reviewed below otherwise noncontributory. SOCIAL HISTORY: As per history of present illness and as reviewed below otherwise noncontributory. FAMILY HISTORY: As per history of present illness and as reviewed below otherwise noncontributory. EXAMINATION OF ORGAN SYSTEMS/BODY AREAS: Constitutional: Blood pressure was 123/68, heart rate 91, respiratory rate 17 with an oxygen saturation 96% on room air. Temperature 36.1 General: Overall well-appearing young woman who is in no acute distress Psychiatric: Appropriate mood and affect. Eyes: No scleral icterus or conjunctival erythema ENMT: Moist mucous membranes. No pharyngeal erythema Cardiovascular: Regular, rate, and rhythm. No gallops, murmurs, or rubs. Bilateral upper extremity pulses symmetric and intact. No peripheral edema. No JVD. Respiratory: Lungs clear to auscultation bilaterally. No wheezes, rales, or rhonchi. Gastrointestinal: Soft, non-tender, non-distended. Normoactive bowel sounds Genitourinary: No suprapubic tenderness Musculoskeletal: Normal range of motion. Skin: No lesions or abrasions. Neurological: Alert, GCS 15 MEDICAL DECISION MAKING AND COURSE IN THE ED WITH INTERPRETATION/REVIEW OF DIAGNOSTIC STUDIES: This is a 29-year-old woman with Hodgkin's lymphoma status post first treatment approximately 3 days ago who comes to the emergency department with acute onset chest pain associated with exertional dyspnea who overall has normal vital signs. At this time given recent chemotherapy treatment will obtain CBC, CMP, troponin, magnesium, coags, and D-dimer. We will provide the patient with 1 L of sodium chloride bolus and provide her with 4 mg of IV morphine for pain. At this time differential could include side effect from medication, cancer pain secondary to treatment, pulmonary embolism, pneumonia, ACS. EKG was obtained in triage which did not reveal any acute signs of ischemia. Twelve-lead EKG interpreted by myself. Normal sinus rhythm at a rate of 84beats per minute. Normal axis. MA interval is 129ms. QRS duration is 80ms. ST segments are normal without elevations or depressions. No Q waves present. Hypertrophy not noted. No changes demonstrated from prior EKG dated November 21, 2018. Interpretation: Normal sinus rhythm Laboratory: CBC reveals a normocytic anemia with a hemoglobin of 11.1 which is unchanged from prior. Coags are within normal limits. CMP is unremarkable except for hypocalcemia however after correction it is normal. There is hypoalbuminemia at 2.9. D-dimer is elevated at 1.82. Troponin is negative. The radiological images were viewed by myself along with reading the report from the radiologist. Chest x-ray does not reveal any acute cardiopulmonary process. On reevaluation, the patient's pain had improved. I did discuss that at this time that given the elevated D-dimer I would like to obtain a CT PE. She was amenable to this plan. The radiological images were viewed by myself along with reading the report from the radiologist. CT PE does not reveal any evidence of pulmonary embolism but does reveal evidence of stable adenopathy and sclerotic bone lesions. After labs and imaging I did contacted [facility] to speak with oncologist external relations manager. I spoke with Dr. Hurtado who works with her oncologist Dr. Novoa. At this time they do not have anything further to provide. They stated that if the patient has ambulatory hypoxia that they would like us to start prednisone 1 mg/kg for duration of 14 days. He stated that he would contact her oncologist to let him know about the patient's dyspnea and chest pain. The patient is on bleomycin so this could be a side effect and they may have to change the regimen for her next chemo treatment. After labs and imaging I did discuss the results with the patient. I did discuss with her my discussion with her oncologist team. At this time the patient had stable vital signs and her pain improved. I discussed with her at this time that there is a possibility that this could be secondary to bleomycin or her chest pain is likely secondary to chemotherapy given the mets to her sternum. I discussed with her that I would provide her with Stowell to be used for breakthrough pain as needed. She was amenable to discharge at this time. She was instructed to return to the emergency department if she has any new or worsening symptoms. DISPOSITION: The patient was discharged home in stable condition. The patient will follow up with her oncologist within 3 to 4 days CONDITION: Fair PROCEDURES: None FINAL IMPRESSION(S)/DIAGNOSES: 1. Acute chest pain, unknown etiology 2. Acute dyspnea possibly secondary to bleomycin Paulo Da Silva M.D. chest Pain Score (Numeric/FACES): 7 - Related Data Allergies Allergy/AdvReac Type Severity Reaction Status Date / Time aspirin Allergy Nausea and Verified 02/23/20 11:13 Vomiting naproxen Allergy Nausea and Verified 02/23/20 11:13 Vomiting Home Meds: Home Meds Acetaminophen/HYDROcodone [Stowell 325-5 MG] 1 tab PO Q6H PRN #10 tablet 02/23/20 [Rx] Naloxone HCl [Narcan] 4 mg NS ONETIME #1 spray 02/23/20 [Rx] Ondansetron [Ondansetron ODT] 8 mg PO Q8H PRN 02/23/20 [History] Prochlorperazine [Compazine] 10 mg PO TID PRN 02/23/20 [History] Past Medical History HEENT History: Reports: None Cardiovascular History: Reports: None Respiratory History: Reports: Asthma Gastrointestinal History: Reports: None Genitourinary History: Reports: None FLIGHT INSTRUCTOR History: Reports: , Other (See Below) Other FLIGHT INSTRUCTOR History: Uterine biopsy Musculoskeletal History: Reports: None Neurological History: Reports: None Psychiatric History: Reports: Anxiety, Bipolar, Depression Endocrine/Metabolic History: Reports: Other (See Below) Other Endocrine/Metabolic History: Biopsy on lymph nodes Hematologic History: Reports: None Immunologic History: Reports: None Oncologic (Cancer) History: Reports: None, Hodgkin's Lymphoma Dermatologic History: Reports: None - Infectious Disease History Infectious Disease History: Reports: Chicken Pox - Past Surgical History Head Surgeries/Procedures: Reports: None HEENT Surgical History: Reports: None Cardiovascular Surgical History: Reports: None Respiratory Surgical History: Reports: None GI Surgical History: Reports: None Female Surgical History: Reports: None Endocrine Surgical History: Reports: None Neurological Surgical History: Reports: None Musculoskeletal Surgical History: Reports: None Oncologic Surgical History: Reports: None Dermatological Surgical History: Reports: None Social & Family History - Family History Family Medical History: No Pertinent Family History - Tobacco Use Tobacco Use Status *Q: Never Tobacco User - Caffeine Use Caffeine Use: Reports: Coffee - Recreational Drug Use Recreational Drug Use: No ED ROS GENERAL - Review of Systems Review Of Systems: See Below ED EXAM, GENERAL - Physical Exam Exam: See Below Course - Vital Signs Last Recorded V/S: Last Vital Signs Temp 36.1 C 02/23/20 11:15 Pulse 89 02/23/20 15:25 Resp 17 02/23/20 15:25 BP 106/65 02/23/20 15:25 Pulse Ox 97 02/23/20 15:25 - Orders/Labs/Meds Orders: Active Orders 24 hr Category Date Time Status Cardiac Monitoring [RC] . DIRECTED Care 02/23/20 11:26 Active EKG 12 Lead [EKG Documentation Completion] [RC] STAT Care 02/23/20 13:06 Active Pulse Oximetry [RC] ASDIRECTED Care 02/23/20 11:26 Active Sodium Chloride 0.9% [Normal Saline] 1,000 ml Med 02/23/20 12:45 Active IV ASDIRECTED Medication Orders Sodium Chloride (Normal Saline) 1,000 mls @ 999 mls/hr IV ASDIRECTED NIKKI Last Admin: 02/23/20 12:32 Dose: 999 mls/hr Documented by: JULIAN Labs: Laboratory Tests 02/23/20 02/23/20 02/23/20 Range/Units 12:23 12:23 12:23 WBC 8.60 (4.0-11.0) K/uL RBC 4.46 (4.30-5.90) M/uL Hgb 11.1 L (12.0-16.0) g/dL Hct 36.4 (36.0-46.0) % MCV 81.6 (80.0-98.0) fL MCH 24.9 L (27.0-32.0) pg MCHC 30.5 L (31.0-37.0) g/dL RDW Std Deviation 46.6 (28.0-62.0) fl RDW Coeff of Krista 16 H (11.0-15.0) % Plt Count 211 (150-400) K/uL MPV 9.40 (7.40-12.00) fL Neut % (Auto) 87.3 H (48.0-80.0) % Lymph % (Auto) 11.2 L (16.0-40.0) % [place] % (Auto) 0.8 (0.0-15.0) % Eos % (Auto) 0.6 (0.0-7.0) % Baso % (Auto) 0.1 (0.0-1.5) % Neut # (Auto) 7.5 H (1.4-5.7) K/uL Lymph # (Auto) 1.0 (0.6-2.4) K/uL [place] # (Auto) 0.1 (0.0-0.8) K/uL Eos # (Auto) 0.1 (0.0-0.7) K/uL Baso # (Auto) 0.0 (0.0-0.1) K/uL Nucleated RBC % 0.0 /100WBC Nucleated RBCs # 0 K/uL INR 1.11 D-Dimer, Quantitative 1.82 H (0.0-0.50) mg/L FEU Sodium 136 (136-145) mmol/L Potassium 3.6 (3.5-5.1) mmol/L Chloride 102 (98-107) mmol/L Carbon Dioxide 26.3 (21.0-32.0) mmol/L BUN 13 (7.0-18.0) mg/dL Creatinine 0.6 (0.6-1.0) mg/dL Est Cr Clr Drug Dosing 120.54 mL/min Estimated GFR (MDRD) > 60.0 ml/min Glucose 85 (74-106) mg/dL Calcium 8.2 L (8.5-10.1) mg/dL Magnesium 1.8 (1.8-2.4) mg/dL Total Bilirubin 0.7 (0.2-1.0) mg/dL AST 15 (15-37) IU/L ALT 28 (14-63) IU/L Alkaline Phosphatase 87 (46-116) U/L Troponin I < 0.050 (0.000-0.056) ng/mL Total Protein 6.9 (6.4-8.2) g/dL Albumin 2.9 L (3.4-5.0) g/dL Globulin 4.0 (2.6-4.0) g/dL Albumin/Globulin Ratio 0.7 L (0.9-1.6) Meds: Medications Generic Name Dose Route Start Last Admin Trade Name Freq PRN Reason Stop Dose Admin Sodium Chloride 1,000 mls @ 999 mls/hr 02/23/20 12:45 02/23/20 12:32 Normal Saline IV 999 mls/hr ASDIRECTED NIKKI Administration Discontinued Medications Generic Name Dose Route Start Last Admin Trade Name Freq PRN Reason Stop Dose Admin Heparin Sodium (Porcine) 500 units 02/23/20 16:06 02/23/20 16:08 Heparin Lock Flush 100 Units/Ml FLUSH 02/23/20 16:07 500 units ONETIME ONE Administration Heparin Sodium (Porcine) Confirm 02/23/20 16:07 Heparin Lock Flush 100 Units/Ml Administered 02/23/20 16:08 Dose 500 units .ROUTE .STK-MED ONE Iopamidol 100 ml 02/23/20 14:10 02/23/20 14:11 Isovue Multipack-370 (76%) IVPUSH 02/23/20 14:11 100 ml ONETIME ONE Administration Morphine Sulfate 4 mg 02/23/20 11:25 02/23/20 12:32 Morphine IVPUSH 02/23/20 11:26 4 mg ONETIME ONE Administration Departure - Departure Time of Disposition: 15:44 Disposition: Home, Self-Care 01 Condition: Fair Clinical Impression: Atypical chest pain - Discharge Information *PRESCRIPTION DRUG MONITORING PROGRAM REVIEWED*: No *COPY OF PRESCRIPTION DRUG MONITORING REPORT IN PATIENT DRE: No Prescriptions: Naloxone HCl [Narcan] 4 mg NS ONETIME #1 spray Acetaminophen/HYDROcodone [Stowell 325-5 MG] 1 tab PO Q6H PRN #10 tablet PRN Reason: Breakthrough Pain Instructions: Shortness of Breath, Adult, [id number], Nonspecific Chest Pain, Adult, [id number], Pain Without a Known Cause Referrals: PCP,None [Primary Care Provider] - Forms: ED Department Discharge Additional Instructions: The patient is informed of any results of their evaluation and diagnostic workup and all questions are answered. They are given discharge instructions and return precautions. The patient is stable for discharge. The patient states they understand and agree with the plan and that they will return if their symptoms get worse or if they have any new concerns. The following information is given to patients seen in the emergency department who are being discharged to home. This information is to outline your options for follow-up care. We provide all patients seen in our emergency department with a follow-up referral. The need for follow-up, as well as the timing and circumstances, are variable depending upon the specifics of your emergency department visit. If you don't have a primary care physician on staff, we will provide you with a referral. We always advise you to contact your personal physician following an emergency department visit to inform them of the circumstance of the visit and for follow-up with them and/or the need for any referrals to a consulting specialist. The emergency department will also refer you to a specialist when appropriate. This referral assures that you have the opportunity for follow-up care with a specialist. All of these measure are taken in an effort to provide you with optimal care, which includes your follow-up. Under all circumstances we always encourage you to contact your private physician who remains a resource for coordinating your care. When calling for follow-up care, please make the office aware that this follow-up is from your recent emergency room visit. If for any reason you are refused follow-up, please contact the [facility] Emergency Department at and asked to speak to the emergency department charge nurse. Your evaluated today on an emergency basis. Your work-up was found to be normal. At this time please use Stowell as needed for pain relief. Please remember that total Tylenol dose per day is 4000 mg. There is some thought that the symptoms are due to your chemotherapy with bleomycin. I recommend discussion with your oncologist Dr. Novoa regarding this possible side effect. If you are to have any new or worsening chest pain or shortness of breath please return to the emergency department. Please contact your oncologist on Wednesday for further follow-up. [facility] [address] [place] [id number] [address] Sepsis Event Note (ED) - Evaluation Sepsis Screening Result: No Definite Risk - Focused Exam Vital Signs: Vital Signs Temp Pulse Resp BP Pulse Ox 02/23/20 15:25 89 17 106/65 97 02/23/20 13:10 85 17 105/57 L 97 02/23/20 11:15 36.1 C 91 17 123/68 96 - My Orders Last 24 Hours: My Active Orders 02/23/20 11:26 Cardiac Monitoring [RC] . DIRECTED Pulse Oximetry [RC] ASDIRECTED 02/23/20 12:45 Sodium Chloride 0.9% [Normal Saline] 1,000 ml IV ASDIRECTED 02/23/20 13:06 EKG 12 Lead [EKG Documentation Completion] [RC] STAT - Assessment/Plan Last 24 Hours: My Active Orders 02/23/20 11:26 Cardiac Monitoring [RC] . DIRECTED Pulse Oximetry [RC] ASDIRECTED 02/23/20 12:45 Sodium Chloride 0.9% [Normal Saline] 1,000 ml IV ASDIRECTED 02/23/20 13:06 EKG 12 Lead [EKG Documentation Completion] [RC] STAT
[2020-02-23] MEDS ORDERED: Sodium Chloride 0.9% 1,000 ML IV SCH (12:45)
[2020-02-23 13:02] LABS: BLOOD UREA NITROGEN,BUN 13 mg/dL (7.0-18.0); CARBON DIOXIDE,CO2 26.3 mmol/L (21.0-32.0); CHLORIDE,CL 102 mmol/L (98-107); GLUCOSE RANDOM 85 mg/dL (74-106); POTASSIUM,K 3.6 mmol/L (3.5-5.1); SODIUM,NA 136 mmol/L (136-145)
[2020-02-23] MEDS ORDERED: Iopamidol 755 MG/ML 500 ML Multipack Bottle IVPUSH ONE (14:10)
--- NOTE | 2020-02-23 14:58 | CT ---
INDICATION: History of Hodgkin`s lymphoma, elevated D-dimer TECHNIQUE: CT chest pulmonary PE protocol acquired with 100 cc Isovue 370 IV contrast. COMPARISON: PET-CT January 23, [address] December 25, 2019 FINDINGS: Cardiovascular structures: Normal vascular enhancement of the pulmonary arteries, no sign of pulmonary embolism. Heart size is normal. No sign of aneurysm in the thoracic aorta. Right-sided PICC tip terminates in the proximal right atrium. Mediastinum and cheryl: 4.1 x 3.2 cm soft tissue mass in the left anterior mediastinum. 1.5 cm pre cardiac lymph node. 10.0 cm left medial periclavicular lymph node 1.3 cm left axillary lymph node. Lungs: Clear. Pleura and pericardium: No effusions. Chest wall and axilla: 1.4 cm right axillary lymph. Upper abdomen: 1.2 cm lymph node in the gastrohepatic ligament. Bones: Mixed lytic and sclerotic bone lesions within sternum and manubrium. Sclerotic bone lesion in the T3 vertebral body. Faint sclerotic densities in the T5, T7, and T8 vertebral bodies. IMPRESSION: No pulmonary embolism or pneumonia. Stable adenopathy and sclerotic bone lesions. Please note that all CT scans at this facility use dose modulation, iterative reconstruction, and/or weight-based dosing when appropriate to reduce radiation dose to as low as reasonably achievable. Dictated by France Chiang MD @ Feb 23 2020 2:57PM Signed by Dr. France Chiang @ Feb 23 2020 2:57PM
== END 2020-02-23 16:11 | disposition home or self-care (01) ==
LOC: MW.ED 11:02
DX: R07.89 Other chest pain (principal); R06.02 Shortness of breath; J45.909 Unspecified asthma, uncomplicated; Z88.6 Allergy status to analgesic agent; T45.1X5A Adverse effect of antineoplastic and immunosuppressive drugs, initial encounter
CPT/HCPCS: 36415; 36556; 71045; 71275; 80053; 83735; 84484; 85025; 85379; 85610; 96374; 99285; J1642; J2270; J7030; Q9967; 93010; 99283

== ENCOUNTER 2020-03-27 20:00 | Emergency (ER) | payer MEDICAID ==
[2020-03-27] MEDS ORDERED: Acetaminophen/HYDROcodone 325-5 MG Tab PO ONE (20:59)
--- NOTE | 2020-03-27 21:23 | EDM.PDOC ---
ED HPI GENERAL MEDICAL PROBLEM - General Chief Complaint: Chest Pain Stated Complaint: CHEST PAIN Time Seen by Provider: 03/27/20 20:20 - History of Present Illness INITIAL COMMENTS - FREE TEXT/NARRATIVE: HISTORY AND PHYSICAL: History of present illness: This is a 29-year-old female with a history significant for Hodgkin's lymphoma that was diagnosed in December of this year. Patient has just received her third dose of chemotherapy on Wednesday, 6 days ago. Patient reports that over the last 1 to 2 days she has been experiencing significant pain in her bilateral upper extremities. She reports that this is very common with her postchemotherapy symptoms. Patient reports that normally she would take [place] to assist her with her pain as well as a dose of acetaminophen. She reports that she was out of her [place] so she just took her acetaminophen today without any significant relief in her pain. She reports that she was continuing to have pain and was care encouraged to come to the ED by her boyfriend because he was concerned that she would not be able to sleep tonight secondary to that her pain and discomfort. Patient reports that the pain that she is experiencing today in her bilateral upper arms as well as her chest is very typical of her post chemotherapy symptoms. Patient denies any recent fevers, shakes, chills, nausea, vomiting, diarrhea, dysuria, frequency, urgency. Patient reports that she is slightly constipated since starting on her pain medicines. Patient denies any shortness of breath. Patient has any diaphoresis. Patient denies any exertional component to her chest discomfort. Patient reports that pain increases with inspiration and movement of her upper arms. Patient reports that the pain is mainly in both her shoulders and both her biceps. Review of systems: As per history of present illness and below otherwise all systems reviewed and negative. Past medical history: As per history of present illness and as reviewed below otherwise noncontributory. Surgical history: As per history of present illness and as reviewed below otherwise noncontributory. Social history: No reported history of drug or alcohol abuse. Family history: As per history of present illness and as reviewed below otherwise noncontributory. Physical exam: Constitutional: Patient is oriented to person, place, and time. Appears well- developed and well-nourished. No distress. HEENT: Moist mucous membranes Head: Normocephalic and atraumatic Eyes: Right eye exhibits no discharge. Left eye exhibits no discharge. No scleral icterus Neck: Normal range of motion. No tracheal deviation present. Cardiovascular: Normal rate and regular rhythm. Heart rate 92 Pulmonary: Effort normal, no respiratory distress. No wheezing rales or rhonchi Abdominal: No distention Musculoskeletal: Normal range of motion Neurologic: Alert and oriented to person, place and time. Skin: [place], warm and dry. Psychiatric: Normal mood and affect. Behavior is normal. Judgment and thought content normal. Nursing note and vital signs have been reviewed Patient's ER physical exam is significant for reproducible tenderness to palpation to her anterior chest wall as well as both her shoulders and biceps. Patient is neurovascular intact. Patient has good capillary refill. Patient has excellent bounding pulses bilaterally. This patient was seen and evaluated during the 2019 SARS-CoV-2 novel coronavirus pandemic period. Community viral transmission is ongoing at time of this encounter and the emergency department is operating under pandemic response procedures. Diagnostics: Chest Xray: Normal cardiac silhouette No infiltrates or effusions identified. No PTX No evidence of acute bony fracture. As interpreted by ER MD: Filiberto EKG: As interpreted by ER physician: Filiberto: Nonspecific ST-T wave abnormalities Normal axis No evidence of ST elevation AL Normal sinus rhythm heart rate of 104 Therapeutics: [place] 5/325 x 2 tablets p.o. in the ED. Assessment and plan: This is a 29-year-old female who presents ER today complaining of bilateral arm and chest pain which is typical of her prior postchemotherapy symptoms. Patient reports that she normally would take [place] for this but did not have a [place] at home. Patient is concerned because the holiday weekend is approaching and she will not be able to contact her doctor to assist her with pain. She came to the ER at the encouragement of her boyfriend secondary to concerns of the amount of pain that she was having and difficulty sleeping. Patient's chest x-ray is unremarkable. Patient's EKG did not reveal any significant pathology. I have discussed with the patient regarding her work-up and at this time, she is requesting avoiding any needle sticks as she does not want to get stuck with a needle anymore that she needs to. She is acceptable to a chest x-ray and an EKG at this time and is requesting assistance with pain management. Patient does not feel that the pain that she is experiencing is cardiac or pulmonary nature and feels that this is typical of her prior chemotherapy pain. She reports that she has had a CT scan of her chest in the past when this is happened and it was normal. She reports she does not want to go through that again at this time. I did discuss with the patient my concern that this might be a pulmonary embolism however she once again declined the CT scan. While in the ER, the patient was given [place] 5/325 x 2 tablets to assist her with her pain and we will assist her on an outpatient basis with a prescription to last until she is able to contact her oncologist. 10:15 PM: Patient reevaluated by me and reports that she feels much better after the [place] and is requesting to be discharged home. Reassessment at the time of disposition demonstrates that the patient is in no acute distress. The patient has remained stable throughout the entire ED visit and is without objective evidence for acute process requiring urgent intervention or hospitalization. The patient is stable for discharge, counseling is provided as documented above, discussed symptomatic treatment and specific conditions for return. I have spoken with the patient/caregiver and discussed todays findings, in ad dition to providing specific details for the plan of care. Questions are answered and there is agreement with the plan. Definitive disposition and diagnosis as appropriate pending reevaluation and re view of above. Bilateral Mid-Sternal Arm Pain Score (Numeric/FACES): 8 - Related Data Allergies Allergy/AdvReac Type Severity Reaction Status Date / Time aspirin Allergy Nausea and Verified 11/27/20 11:13 Vomiting naproxen Allergy Nausea and Verified 02/23/20 11:13 Vomiting Home Meds: Home Meds Acetaminophen/HYDROcodone [[place] 325-5 MG] 1 tab PO Q6H PRN #10 tablet 02/23/20 [Rx] Naloxone HCl [Narcan] 4 mg NS ONETIME #1 spray 02/23/20 [Rx] Ondansetron [Ondansetron ODT] 8 mg PO Q8H PRN 02/23/20 [History] Prochlorperazine [Compazine] 10 mg PO TID PRN 02/23/20 [History] Acetaminophen/HYDROcodone [[place] 325-5 MG] 1 tab PO Q6H PRN #12 tablet 03/27/20 [Rx] Past Medical History HEENT History: Reports: None Cardiovascular History: Reports: None Respiratory History: Reports: Asthma Gastrointestinal History: Reports: None Genitourinary History: Reports: None 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: Reports: , Other (See Below) Other 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: Uterine biopsy Musculoskeletal History: Reports: None Neurological History: Reports: None Psychiatric History: Reports: Anxiety, Bipolar, Depression Endocrine/Metabolic History: Reports: Other (See Below) Other Endocrine/Metabolic History: Biopsy on lymph nodes Hematologic History: Reports: None Immunologic History: Reports: None Oncologic (Cancer) History: Reports: None, Hodgkin's Lymphoma Dermatologic History: Reports: None - Infectious Disease History Infectious Disease History: Reports: Chicken Pox - Past Surgical History Head Surgeries/Procedures: Reports: None HEENT Surgical History: Reports: None Cardiovascular Surgical History: Reports: None Respiratory Surgical History: Reports: None GI Surgical History: Reports: None Female Surgical History: Reports: None Endocrine Surgical History: Reports: None Neurological Surgical History: Reports: None Musculoskeletal Surgical History: Reports: None Oncologic Surgical History: Reports: None Dermatological Surgical History: Reports: None Social & Family History - Family History Family Medical History: No Pertinent Family History - Tobacco Use Tobacco Use Status *Q: Former Tobacco User Years of Tobacco use: 1 Packs/Tins Daily: 1 Used Tobacco, but Quit: Yes Month/Year Tobacco Last Used: November 2019 Second Hand Smoke Exposure: No - Caffeine Use Caffeine Use: Reports: Energy Drinks - Recreational Drug Use Recreational Drug Use: No ED ROS GENERAL - Review of Systems Review Of Systems: See Below ED EXAM, GENERAL - Physical Exam Exam: See Below #1 Interpretation EKG Interpretation Comments: EKG: As interpreted by ER physician: Filiberto: Nonspecific ST-T wave abnormalities Normal axis No evidence of ST elevation AL Sinus tachycardia heart rate of 104 Course - Vital Signs Last Recorded V/S: Last Vital Signs Temp 98.5 F 03/27/20 20:17 Pulse 115 H 03/27/20 20:17 Resp 20 03/27/20 20:17 BP 128/89 03/27/20 20:17 Pulse Ox 96 03/27/20 20:17 - Orders/Labs/Meds Orders: Active Orders 24 hr Category Date Time Status EKG Documentation Completion [RC] AM Care 03/27/20 21:00 Active Meds: Medications Discontinued Medications Generic Name Dose Route Start Last Admin Trade Name Freq PRN Reason Stop Dose Admin Hydrocodone Bitart/Acetaminophen 2 tab 03/27/20 20:59 03/27/20 21:10 [place] 325-5 Mg PO 03/27/20 21:00 2 tab ONETIME ONE Administration Departure - Departure Time of Disposition: 22:37 Disposition: Home, Self-Care 01 Condition: Good Clinical Impression: Chest pain - Discharge Information Prescriptions: Acetaminophen/HYDROcodone [[place] 325-5 MG] 1 tab PO Q6H PRN #12 tablet PRN Reason: Pain Instructions: Nonspecific Chest Pain, Adult Referrals: PCP,None [Primary Care Provider] - Forms: ED Department Discharge Additional Instructions: You were seen in the ER today secondary to pain to your chest in your arms which appear to be consistent with the pain that you have had in the past after your chemotherapy. You will be given a prescription for [place] to assist you until you are able to see your family doctor or oncologist to assist you with further pain management. Please return the ER if you have any new or concerning symptoms. The following information is given to patients seen in the emergency department who are being discharged to home. This information is to outline your options for follow-up care. We provide all patients seen in our emergency department with a follow-up referral. The need for follow-up, as well as the timing and circumstances, are variable depending upon the specifics of your emergency department visit. If you don't have a primary care physician on staff, we will provide you with a referral. We always advise you to contact your personal physician following an emergency department visit to inform them of the circumstance of the visit and for follow-up with them and/or the need for any referrals to a consulting specialist. The emergency department will also refer you to a specialist when appropriate. This referral assures that you have the opportunity for follow-up care with a specialist. All of these measure are taken in an effort to provide you with optimal care, which includes your follow-up. Under all circumstances we always encourage you to contact your private physician who remains a resource for coordinating your care. When calling for follow-up care, please make the office aware that this follow-up is from your recent emergency room visit. If for any reason you are refused follow-up, please contact the [facility] Emergency Department at and asked to speak to the emergency department charge nurse. [facility] [address] [place] [address] [id number] [address] [address] Sepsis Event Note (ED) - Evaluation Sepsis Screening Result: No Definite Risk - Focused Exam Vital Signs: Vital Signs Temp Pulse Resp BP Pulse Ox 03/27/20 20:17 98.5 F 115 H 20 128/89 96 - My Orders Last 24 Hours: My Active Orders 03/27/20 21:00 EKG Documentation Completion [RC] AM - Assessment/Plan Last 24 Hours: My Active Orders 03/27/20 21:00 EKG Documentation Completion [RC] AM
--- NOTE | 2020-03-27 22:19 | CR ---
INDICATION: Hodgkins lymphoma TECHNIQUE: Chest radiograph 1 view COMPARISON: 02/23/2020 FINDINGS: Moderate degradation of image quality noted due to body habitus. Mediastinum: The mediastinum is normal in appearance. The heart silhouette is normal in size and morphology. Right port-A-cath is unchanged. Lung: Both lungs are unremarkable in appearance with small lung volumes. No sign of pleural effusion seen. No pneumothorax is identified. Bone and Soft tissue: Unremarkable for age. IMPRESSION: 1. No acute cardiopulmonary disease is seen. Dictated by: Torin Aponte MD @ 03/27/2020 22:17:32 (Electronically Signed)
== END 2020-03-27 22:48 | disposition home or self-care (01) ==
LOC: MW.ED 20:00
DX: R07.9 Chest pain, unspecified (principal); F41.9 Anxiety disorder, unspecified; J45.909 Unspecified asthma, uncomplicated; Z88.8 Allergy status to other drugs, medicaments and biological substances; Z87.891 Personal history of nicotine dependence; Z79.899 Other long term (current) drug therapy
CPT/HCPCS: 71045; 93005; 99285; A9270